=== PATIENT | male | born 1960 | race Asian ===

== ENCOUNTER 2018-11-08 09:58 | Inpatient (IN) | payer OTHER ==
[2018-11-08] MEDS ORDERED: VITAMIN B-1 100 MG, FOLVITE 1 MG, INFUVITE 10 ML, MAGNESIUM SULFATE 2 GM in NACL 0.9% 1... IV ONE (10:59)
[2018-11-08] MEDS ORDERED: NACL 0.9% 1000 ML 1,000 ML IV ONE ×2 (10:59→11:03)
--- NOTE | 2018-11-08 11:09 | Emergency Department Report ---
HPI - General Chief Complaint: Syncope Time Seen by Provider: 11/08/18 10:47 - HPI HPI: Room 22 The patient is a 57-year-old male presenting with chief complaint of abdominal pain and syncope. Family states patient has a history of heavy alcohol consump tion to 2 approximately 1 pint of whiskey daily. The patient states he last consumed approximately 1 week ago the family states they last saw drinking approximately 2 days ago. For the past 2 days the patient has had midepigastric abdominal pain. Patient denies nausea vomiting or diarrhea. The patient uses a follow-up_12/10. The patient was going to his physician's office this morning for his abdominal pain and during triage patient was standing and then he fell. Family states they caught him and the patient went unresponsive for approximately 2-3 minutes. Family states the patient had tremors but did not have a seizure like activity. Family denies history of fever but last night the patient states he was diaphoretic Location: [See above] Duration: [See above] Quality: [See above] Severity: 12/10 Modifying factors: [see above] Context: [see above] Mode of transportation: [not driving] ED Past Medical Hx - Past Medical History Previous Medical History?: Yes Hx Hypertension: Yes Hx Diabetes: Yes - Surgical History Past Surgical History?: No - Family History Family history: no significant - Social History Smoking Status: Never Smoker Substance Use Type: Alcohol (approximately 1 pint of liquor daily) - Medications Home Medications: Home Medications Medication Instructions Recorded Confirmed Last Taken Type Carvedilol 25 mg PO BID 11/08/18 11/08/18 Unknown History Cetirizine HCl 10 mg PO DAILY 11/08/18 11/08/18 Unknown History Fenofibrate 160 mg PO HS 11/08/18 11/08/18 Unknown History Lovastatin 40 mg PO DAILY 11/08/18 11/08/18 Unknown History Olmesartan/Hctz 40/12.5MG 40 mg PO DAILY 11/08/18 11/08/18 Unknown History chlorproMAZINE 25 mg PO TID 11/08/18 11/08/18 Unknown History metFORMIN 1,000 mg PO BID 11/08/18 11/08/18 Unknown History traZODone 150 mg PO DAILY 11/08/18 11/08/18 Unknown History ED Review of Systems ROS: Stated complaint: SYNCOPE Other details as noted in HPI Constitutional: diaphoresis. denies: fever Eyes: denies: eye pain ENT: denies: throat pain Respiratory: no symptoms reported Cardiovascular: denies: chest pain Endocrine: no symptoms reported Gastrointestinal: abdominal pain. denies: nausea, vomiting, diarrhea Genitourinary: other (difficulty urinating) Musculoskeletal: denies: back pain Neurological: denies: headache Physical Exam - Physical Exam Vital Signs: Vital Signs 11/08/18 10:17 Temperature 98 F Pulse Rate 118 H Respiratory 16 Rate Blood Pressure 119/100 O2 Sat by Pulse 95 Oximetry Physical Exam: GENERAL: The patient is well-developed well-nourished male lying on stretcher not appearing to be in acute distress. [] HEENT: Normocephalic. Atraumatic. Extraocular motions are intact. Patient has moist mucous membranes. NECK: Supple. Trachea midline CHEST/LUNGS: Clear to auscultation. There is no respiratory distress noted. HEART/CARDIOVASCULAR: Regular. There is tachycardia. There is no gallop rub or murmur. ABDOMEN: Abdomen is soft, with diffuse tenderness to palpation, but greatest in the right lower quadrant. Patient has normal bowel sounds. There is no abdominal distention. SKIN: There is no rash. There is no edema. There is no diaphoresis. NEURO: The patient is awake, alert, and oriented. The patient is cooperative. The patient has no focal neurologic deficits. The patient has normal speech. Patient has slight tremulousness MUSCULOSKELETAL: There is no evidence of acute injury. ED Course Vital Signs 11/08/18 10:17 Temperature 98 F Pulse Rate 118 H Respiratory 16 Rate Blood Pressure 119/100 O2 Sat by Pulse 95 Oximetry - Reevaluation(s) Reevaluation #1: 11/08/18 12:12 Nurse (Blake) informed of patient's potassium and need for urgent medication - Consultations Consultation #1: 11/08/18 12:12 Nephrology paged 11/08/18 12:[address] Garland. Recommends administering 2 more sodium bicarbonate in place and patient will bicarbonate drip consisting of 1 L D5 mixed with 3 A of sodium bicarbonate at 125 mL/hr. recommends contacting vascular for Vas-Cath Consultation #2: 11/08/18 12:40 Vascular surgery paged 11/08/18 12:[address] Demarco ED Medical Decision Making - Lab Data Result diagrams: 11/08/18 11:05 11/08/18 11:05 Laboratory Tests 11/08/18 11/08/18 11/08/18 11:05 11:05 11:05 WBC 18.4 H RBC 3.90 Hgb 13.6 Hct 39.9 MCV 102 H MCH 35 H MCHC 34 RDW 16.7 H Plt Count 135 L PT 16.4 H INR 1.24 H APTT 33.9 Sodium 127 L Potassium 7.4 H* Chloride 83.9 L Carbon Dioxide 18 L Anion Gap 32 BUN 25 H Creatinine 3.8 H Estimated GFR 17 BUN/Creatinine Ratio 7 Glucose 244 H POC Glucose Calcium 8.2 L Total Bilirubin 1.30 H AST 128 H ALT 32 Alkaline Phosphatase 38 Ammonia Total Creatine Kinase 159 CK-MB (CK-2) 1.1 CK-MB (CK-2) Rel Index 0.6 Troponin T < 0.010 Total Protein 7.9 Albumin 3.8 L Albumin/Globulin Ratio 0.9 Lipase 3006 H TSH Free T4 Plasma/Serum Alcohol Blood Type Antibody Screen 11/08/18 11/08/18 11/08/18 11:05 11:05 11:05 WBC RBC Hgb Hct MCV MCH MCHC RDW Plt Count PT INR APTT Sodium Potassium Chloride Carbon Dioxide Anion Gap BUN Creatinine Estimated GFR BUN/Creatinine Ratio Glucose POC Glucose Calcium Total Bilirubin AST ALT Alkaline Phosphatase Ammonia 35.0 Total Creatine Kinase CK-MB (CK-2) CK-MB (CK-2) Rel Index Troponin T Total Protein Albumin Albumin/Globulin Ratio Lipase TSH 9.780 H Free T4 1.21 Plasma/Serum Alcohol < 0.01 Blood Type Antibody Screen 11/08/18 11/08/18 11:13 12:20 WBC RBC Hgb Hct MCV MCH MCHC RDW Plt Count PT INR APTT Sodium Potassium Chloride Carbon Dioxide Anion Gap BUN Creatinine Estimated GFR BUN/Creatinine Ratio Glucose POC Glucose 183 H Calcium Total Bilirubin AST ALT Alkaline Phosphatase Ammonia Total Creatine Kinase CK-MB (CK-2) CK-MB (CK-2) Rel Index Troponin T Total Protein Albumin Albumin/Globulin Ratio Lipase TSH Free T4 Plasma/Serum Alcohol Blood Type O POSITIVE Antibody Screen Negative - EKG Data -: EKG Interpreted by Nc EKG shows normal: sinus rhythm Rate: tachycardia (120 bpm) - EKG Data When compared to previous EKG there are: previous EKG unavailable Interpretation: other (no ischemic changes seen) - Radiology Data Radiology results: pending (CT abdomen and pelvis), report reviewed (CT head), image reviewed (CT head) Findings [facility] [address] [place] [address] Cat Scan Report Signed Patient: LUCIO SHAH MR#: [id number] : 1960 Acct:[id number] Age/Sex: 57 / M ADM Date: 11/08/18 Loc: ED Attending Dr: Ordering Physician: MI GREGORIO MD Date of Service: 11/08/18 Procedure(s): CT head/brain wo con Accession Number(s): [id number] cc: MI GREGORIO MD EXAM: CT HEAD/BRAIN WO CON HISTORY: syncope TECHNIQUE: Spiral axial CT images are obtained through the brain without the administration of intravenous contrast. COMPARISON: None available. FINDINGS: There are parenchymal lucencies within the white matter tracks of the centrum semiovale, consistent with chronic sequela of atherosclerotic microvascular ischemic disease. Bilateral basal ganglia calcifications consistent with atherosclerotic microangiopathy. Atherosclerosis of the intracranial ICAs is seen. There is diffuse cerebral cortical atrophy. The centrum semiovale, basal ganglia, cerebellum, and brainstem are otherwise grossly unremarkable for a noncontrast CT scan. There is no acute intracranial hemorrhage, gross acute infarction, mass lesion, midline shift, or hydrocephalus seen. No extra-axial mass or abnormal fluid collection noted. The calvarium is intact. There is chronic sphenoid sinusitis marked by lobular mucoperiosteal thickening, right greater than left. There is partial opacification of the left inferior mastoid air cells in keeping with chronic mastoiditis. The partially imaged paranasal sinuses, middle ear cavities and mastoid air cells are otherwise clear. IMPRESSION: 1. Chronic microvascular ischemic disease throughout the centrum semiovale, but no discernible acute infarction seen. Consider followup MRI with diffusion-weighted imaging to rule out occult acute infarction if clinically warranted. 2. Bilateral basal ganglia calcifications consistent with atherosclerotic microangiopathy. Atherosclerosis of the intracranial ICAs is seen. 3. No skull fracture, intracranial hemorrhage, mass lesion, midline shift, or hydrocephalus seen. 4. Chronic sphenoid sinusitis marked by lobular mucoperiosteal thickening, right greater than left. 5. Partial opacification of the left inferior mastoid air cells in keeping with chronic mastoiditis. This document is electronically signed by Isaac Guido MD., November 08 2018 12:22:11 PM ET Transcribed By: ASM Dictated By: ISAAC GUIDO Electronically Authenticated By: ISAAC GUIDO Signed Date/Time: 11/08/18 1224 DD/ 1200 TD/TT: 11/08/18 1201 - Differential Diagnosis alcohol withdrawal, pancreatitis, symptomatic anemia Critical Care Time: Yes Critical care time in (mins) excluding proc time.: 30 Critical care attestation.: If time is entered above; I have spent that time in minutes in the direct care of this critically ill patient, excluding procedure time. ED Disposition Clinical Impression: Syncope, Acute renal failure, Acute pancreatitis, Hypotension, Hyperkalemia Disposition: OP ADMIT IP TO THIS HOSP Is pt being admited?: Yes Does the pt Need Aspirin: No Condition: Serious Instructions: Syncope (ED) Referrals: NAM COLBERT MD [Primary Care Provider] - 3-5 Days Time of Disposition: 12:53 (hospitalist notified (Dr Todd))
[2018-11-08 11:30] LABS: Hematocrit 39.9 % (35.5-45.6); Hemoglobin 13.6 gm/dl (11.8-15.2); Mean Corpuscular HGB Conc 34 % (32-34); Mean Corpuscular Volume 102 fl (84-94); Platelet Count 135 K/mm3 (140-440); Red Cell Distribution Width 16.7 % (13.2-15.2)
[2018-11-08 11:41] LABS: INR 1.24 (0.87-1.13)
[2018-11-08 11:42] LABS: Partial Thromboplastin Time 33.9 Sec. (24.2-36.6)
[2018-11-08 11:55] LABS: Creatine Kinase MB 1.1 ng/mL (0.0-4.0)
[2018-11-08 11:56] LABS: Alanine Aminotransferase 32 units/L (7-56); Albumin 3.8 g/dL (3.9-5); BUN/Creatinine Ratio 7; Blood Urea Nitrogen 25 mg/dL (9-20); Calcium 8.2 mg/dL (8.4-10.2); Hemolysis Index 8
[2018-11-08] MEDS ORDERED: MAGNESIUM SULFATE IV ONE (12:00)
[2018-11-08] MEDS ORDERED: NACL IV ONE (12:00)
[2018-11-08] MEDS ORDERED: FOLVITE IV ONE (12:00)
[2018-11-08] MEDS ORDERED: INFUVITE IV ONE (12:00)
[2018-11-08 12:02] LABS: Free T4 (Free Thyroxine) 1.21 ng/dL (0.76-1.46)
[2018-11-08] MEDS ORDERED: D50W (25GM) Syringe IV ONE (12:08)
[2018-11-08] MEDS ORDERED: CALCIUM GLUCONATE 1,000 MG in NACL 0.9% 100 ML IV ONE (12:08)
[2018-11-08] MEDS ORDERED: PROVENTIL IH ONE (12:08)
[2018-11-08] MEDS ORDERED: HumuLIN R IV ONE (12:08)
--- NOTE | 2018-11-08 12:24 | Cat Scan Report ---
EXAM: CT HEAD/BRAIN WO CON HISTORY: syncope TECHNIQUE: Spiral axial CT images are obtained through the brain without the administration of intra venous contrast. COMPARISON: None available. FINDINGS: There are parenchymal lucencies within the white matter tracks of the centrum semiovale, consistent w ith chronic sequela of atherosclerotic microvascular ischemic disease. Bilateral basal ganglia calci fications consistent with atherosclerotic microangiopathy. Atherosclerosis of the intracranial ICAs i s seen. There is diffuse cerebral cortical atrophy. The centrum semiovale, basal ganglia, cerebellum, and bra instem are otherwise grossly unremarkable for a noncontrast CT scan. There is no acute intracranial hemorrhage, gross acute infarction, mass lesion, midline shift, or hydrocephalus seen. No extra-axia l mass or abnormal fluid collection noted. The calvarium is intact. There is chronic sphenoid sinusitis marked by lobular mucoperiosteal thicken ing, right greater than left. There is partial opacification of the left inferior mastoid air cells i n keeping with chronic mastoiditis. The partially imaged paranasal sinuses, middle ear cavities and m astoid air cells are otherwise clear. IMPRESSION: 1. Chronic microvascular ischemic disease throughout the centrum semiovale, but no discernible acute infarction seen. Consider followup MRI with diffusion-weighted imaging to rule out occult acute infa rction if clinically warranted. 2. Bilateral basal ganglia calcifications consistent with atherosclerotic microangiopathy. Atheroscl erosis of the intracranial ICAs is seen. 3. No skull fracture, intracranial hemorrhage, mass lesion, midline shift, or hydrocephalus seen. 4. Chronic sphenoid sinusitis marked by lobular mucoperiosteal thickening, right greater than left. 5. Partial opacification of the left inferior mastoid air cells in keeping with chronic mastoiditis. This document is electronically signed by Erwin Stroud MD., November 08 2018 12:22:11 PM ET
[2018-11-08] MEDS ORDERED: SODIUM BICARBONATE 150 MEQ in D5W 1,000 ML IV ONE (12:47)
[2018-11-08 12:50] LABS: Band Neutrophils # (Manual) 0.9 K/mm3; Basophils % (Manual) 0 % (0.0-1.8); Eosinophils % (Manual) 0 % (0.0-4.3); Total Cells Counted 100
[2018-11-08 12:55] LABS: Anisocytosis 1+; Macrocytosis 1+; Platelet Estimate Consistent w Auto
--- NOTE | 2018-11-08 12:59 | Consultation ---
History of Present Illness - History of Present Illness Thank you for the consultation Source of information: History of presenting illness Patient is a 57-year-old male who is currently being followed by Dr. Thomas He was admitted here with increasing abdominal pain as well as a syncopal spell: Patient has been drinking for many many years according to his son for at least 15 or more recently for the last 3-4 days he was unable to drink and has been working on quitting drinking. He has never been told to have any history of chronic kidney disease and renal failure. Upon admission he was also noted to be somewhat tremulous and jittery and was complaining of midepigastric abdominal pain patient's appetite has been very poor for last 4-5 days he does drank approximately a pint of whiskey every day He does not take any form of monitor vital drug no history of any hepatitis B C HIV lupus or paraproteinemias no history of epistaxis or skin rash As noted to have severe hyperkalemia with renal failure for which I came and saw the patient right away Past medical history significant for: Hypertension Chronic alcohol abuse Current allergies: Reviewed Home medication/present medication: Reviewed Social history: Reviewed from the current chart Family history: Reviewed from the current chart Review of system is positive for; Weakness generalized, fatigue, syncopal spell, poor appetite, poor by mouth in take for last several days All other review of systems were negative Physical examination Vitals: Reviewed from this admission Gen.: No acute distress/ patient does however appear to be jittery and tremulous HEENT: Normocephalic/atraumatic skull oral mucosa very dry minimal pallor no icterus or uremic order Neck: Supple without any thyromegaly nodular mass or JVD Chest: Clear to auscultation anteriorly few faint basilar crackles otherwise unremarkable Heart: Regular rate and rhythm S1 and S2 heard no S3-S4 no pericardial rub Abdomen: Soft nontender no guarding rigidity rebound organomegaly no suprapubic masses, no CVA tenderness no renal bruit Back: No CVA tenderness Derm: No petechial rashes dry skin Extremity: Pulses palpable no peripheral cyanosis, 1+ edema dry skin Neurological: Alert awake follows commands Psychiatric: No agitation and aggression Labs and x-rays: Were reviewed from this admission Assessment and plan; Renal failure / hyperkalemia , needs stat dialysis , will order stat , discussed with ER MD about getting vascath palcement Has very poor appetite , past few days Cr EToH abuse 20 years or more Hyperkalemia , medical treatment advised Liver disease, ETOH abuse Abdominal pain needs GI evaluation Hypotension , volume resucitation ICU admission, vasopressors Care plan formulated with ER MD Needs stat vas cath, HD ordered D/W pratik to do potassium 2 hour into treratment Also explained to the patients son at length Needs cardiology evaluation Had a detailed discussion with patient as well as his son at the bedside about the plan of care from renal standpoint. All questions were answered labs and pertinent imaging findings were explained to the patient and simple Kiswahili. Patient needs emergent dialysis which will be arranged appreciated vascular surgery for placing the dialysis catheter Advised patient to make an appointment for follow-up within a week of the discharge, for proper renal care We'll continue to follow and make recommendation from renal standpoint Thank you for the consultation. Medications and Allergies Allergies Allergy/AdvReac Type Severity Reaction Status Date / Time No Known Allergies Allergy Verified 11/08/18 10:14 Home Medications Medication Instructions Recorded Confirmed Last Taken Type Carvedilol 25 mg PO BID 11/08/18 11/08/18 Unknown History Cetirizine HCl 10 mg PO DAILY 11/08/18 11/08/18 Unknown History Fenofibrate 160 mg PO HS 11/08/18 11/08/18 Unknown History Lovastatin 40 mg PO DAILY 11/08/18 11/08/18 Unknown History Olmesartan/Hctz 40/12.5MG 40 mg PO DAILY 11/08/18 11/08/18 Unknown History chlorproMAZINE 25 mg PO TID 11/08/18 11/08/18 Unknown History metFORMIN 1,000 mg PO BID 11/08/18 11/08/18 Unknown History traZODone 150 mg PO DAILY 11/08/18 11/08/18 Unknown History Active Meds: Active Medications Folic Acid 1 mg/ Magnesium Sulfate 2 gm/ Multivitamins/Minerals 10 ml/ Sodium Chloride 1,014.2 mls @ 250 mls/hr IV ONCE.ED ONE Stop: 11/08/18 16:03 Last Admin: 11/08/18 11:45 Dose: 250 mls/hr Documented by: Sodium Bicarbonate 150 meq/ (Dextrose) 1,150 mls @ 125 mls/hr IV DIRECT ONE Stop: 03/09/19 21:58 Sodium Bicarbonate (Sodium Bicarbonate) 50 meq IV ONCE ONE Stop: 11/08/18 13:01 Exam - Vital Signs Vital signs: Vital Signs Temp Pulse Resp BP Pulse Ox 98 F 118 H 16 119/100 95 11/08/18 10:17 11/08/18 10:17 11/08/18 10:17 11/08/18 10:17 11/08/18 10:17 Results - Lab Results 11/10/18 05:37 11/10/18 05:37 Most recent lab results Calcium 8.2 mg/dL (8.4-10.2) L 11/08/18 11:05
[2018-11-08] MEDS ORDERED: SODIUM BICARBONATE IV ONE ×2 (13:00→14:00)
--- NOTE | 2018-11-08 13:00 | History and Physical Report ---
History of Present Illness Chief complaint: My stomach hurts, and I got dizzy and passed out History of present illness: 57 YO Male with ETOH Dependence, HTN, DM presents to ED for evaluation. Pt speaks limited Turkish, but family member serves as conference translator. As per patient, he consumes 1 pint of Mukesh Walker daily with last ingestion almost 2 days ago. Pt also reports abdominal discomfort, generalized weakness, decreased oral intake over the past 1 week. Pt was seen by PCP today for abdominal pain and upon standing the patient the patient felt week, and lost his balance and almost fell. The patient family reports a change in level of consciousness for 2-3 minutes. EMS notified, and upon arrival the patient was found to be in distress without neurologic deficit. Pt transported to [facility]. Pt seen and evaluated in ED and found to have ARF/ESRD and in need of Emergent dialysis. Pt also found to have ETOH Pancreatitis. Pt treated IAW ETOH withdrawl protocol. Vascular surgery consulted in ED. Pt admitted to [facility]. No reports of fever, chills, CP, Palpitations, NVD, Trauma, Ingestion of toxic substances, Herbal supplements, known nephrotoxic agents, skin rash, vertigo, or recent ill contacts. Past History Past Medical History: diabetes, hypertension Past Surgical History: cholecystectomy Social history: , alcohol abuse Family history: no significant family history (reviewed) Medications and Allergies Allergies Allergy/AdvReac Type Severity Reaction Status Date / Time No Known Allergies Allergy Verified 11/08/18 10:14 Home Medications Medication Instructions Recorded Confirmed Last Taken Type Carvedilol 25 mg PO BID 11/08/18 11/08/18 Unknown History Cetirizine HCl 10 mg PO DAILY 11/08/18 11/08/18 Unknown History Fenofibrate 160 mg PO HS 11/08/18 11/08/18 Unknown History Lovastatin 40 mg PO DAILY 11/08/18 11/08/18 Unknown History Olmesartan/Hctz 40/12.5MG 40 mg PO DAILY 11/08/18 11/08/18 Unknown History chlorproMAZINE 25 mg PO TID 11/08/18 11/08/18 Unknown History metFORMIN 1,000 mg PO BID 11/08/18 11/08/18 Unknown History traZODone 150 mg PO DAILY 11/08/18 11/08/18 Unknown History Active Meds: Active Medications Folic Acid 1 mg/ Magnesium Sulfate 2 gm/ Multivitamins/Minerals 10 ml/ Sodium Chloride 1,014.2 mls @ 250 mls/hr IV ONCE.ED ONE Stop: 11/08/18 16:03 Last Admin: 11/08/18 11:45 Dose: 250 mls/hr Documented by: Sodium Bicarbonate 150 meq/ (Dextrose) 1,150 mls @ 125 mls/hr IV DIRECT ONE Stop: 11/08/18 21:58 Sodium Bicarbonate (Sodium Bicarbonate) 50 meq IV ONCE ONE Stop: 11/08/18 13:01 Review of Systems Constitutional: weakness, no weight loss, no weight gain, no fever, no chills Ears, nose, mouth and throat: no ear pain, no ear discharge, no tinnitis, no decreased hearing, no nose pain, no nasal congestion Gastrointestinal: abdominal pain, no nausea, no vomiting, no diarrhea Genitourinary Male: no hematuria, no flank pain, no urinary frequency, no urinary hesitancy Rectal: no pain, no incontinence, no bleeding Musculoskeletal: no neck stiffness, no neck pain, no shooting arm pain, no low back pain Integumentary: no rash, no pruritis, no redness, no sores, no wounds Neurological: weakness, change in mentation, no numbness, no tingling, no seizures, no syncope, no tremors, no aphasia, no change in speech Psychiatric: no anxiety, no memory loss, no change in sleep habits, no sleep disturbances, no insomnia, no hypersomnia, no change in appetite Endocrine: no cold intolerance, no heat intolerance, no polyphagia, no excessive thirst, no polydipsia, no polyuria, no nocturia Hematologic/Lymphatic: no easy bruising, no easy bleeding, no lymphadenopathy Allergic/Immunologic: no urticaria, no allergic rhinitis, no wheezing, no persistent infections, no anaphylaxis Exam - Constitutional Vitals: Temp Pulse Resp BP Pulse Ox 98 F 115 H 16 95/58 95 11/08/18 10:17 11/08/18 12:11 11/08/18 12:11 11/08/18 12:11 11/08/18 12:11 General appearance: Present: mild distress, malodorous - EENT Eyes: Present: PERRL ENT: hearing intact, clear oral mucosa - Neck Neck: Present: supple, normal ROM - Respiratory Respiratory effort: normal Respiratory: bilateral: CTA - Cardiovascular Rhythm: other (tachycardia) Heart Sounds: Present: S1 & S2. Absent: rub, click - Extremities Extremities: pulses symmetrical, No edema Peripheral Pulses: within normal limits - Abdominal General gastrointestinal: Present: soft, tender, non-distended, normal bowel sounds. Absent: hepatomegaly, splenomegaly, mass Male genitourinary: Present: normal - Integumentary Integumentary: Present: clear, warm, dry, clammy, decreased turgor - Musculoskeletal Musculoskeletal: generalized weakness - Psychiatric Psychiatric: no appropriate mood/affect, no intact judgment & insight, no memory intact - Neurologic Neurologic: CNII-XII intact, moves all extremities Results - Labs CBC & Chem 7: 11/08/18 11:05 11/08/18 11:05 Labs: Abnormal lab results 11/08/18 11/08/18 11/08/18 Range/Units 11:05 11:05 11:05 WBC 18.4 H (4.5-11.0) K/mm3 MCV 102 H (84-94) fl MCH 35 H (28-32) pg RDW 16.7 H (13.2-15.2) % Plt Count 135 L (140-440) K/mm3 Seg Neuts % (Manual) 84.0 H (40.0-70.0) % Lymphocytes % (Manual) 6.0 L (13.4-35.0) % Seg Neutrophils # Man 15.5 H (1.8-7.7) K/mm3 Lymphocytes # (Manual) 1.1 L (1.2-5.4) K/mm3 Monocytes # (Manual) 0.9 H (0.0-0.8) K/mm3 PT 16.4 H (12.2-14.9) Sec. INR 1.24 H (0.87-1.13) Sodium 127 L (137-145) mmol/L Potassium 7.4 H* (3.6-5.0) mmol/L Chloride 83.9 L (98-107) mmol/L Carbon Dioxide 18 L (22-30) mmol/L BUN 25 H (9-20) mg/dL Creatinine 3.8 H (0.8-1.5) mg/dL Glucose 244 H (75-100) mg/dL POC Glucose (70-105) Calcium 8.2 L (8.4-10.2) mg/dL Total Bilirubin 1.30 H (0.1-1.2) mg/dL AST 128 H (5-40) units/L Albumin 3.8 L (3.9-5) g/dL Lipase 3006 H (13-60) units/L TSH (0.270-4.200) mlU/mL 11/08/18 11/08/18 Range/Units 11:05 12:20 WBC (4.5-11.0) K/mm3 MCV (84-94) fl MCH (28-32) pg RDW (13.2-15.2) % Plt Count (140-440) K/mm3 Seg Neuts % (Manual) (40.0-70.0) % Lymphocytes % (Manual) (13.4-35.0) % Seg Neutrophils # Man (1.8-7.7) K/mm3 Lymphocytes # (Manual) (1.2-5.4) K/mm3 Monocytes # (Manual) (0.0-0.8) K/mm3 PT (12.2-14.9) Sec. INR (0.87-1.13) Sodium (137-145) mmol/L Potassium (3.6-5.0) mmol/L Chloride (98-107) mmol/L Carbon Dioxide (22-30) mmol/L BUN (9-20) mg/dL Creatinine (0.8-1.5) mg/dL Glucose (75-100) mg/dL POC Glucose 183 H (70-105) Calcium (8.4-10.2) mg/dL Total Bilirubin (0.1-1.2) mg/dL AST (5-40) units/L Albumin (3.9-5) g/dL Lipase (13-60) units/L TSH 9.780 H (0.270-4.200) mlU/mL Assessment and Plan - Patient Problems (1) Acute pancreatitis Current Visit: Yes Status: Acute Qualifiers: Pancreatitis type: alcohol induced Plan to address problem: Admit to IMCU, IVF resuscitation therapy as tolerated, monitor uop q shift, strict I/O, monitor fluid balance, bowel rest, CT Abdomen/Pelvis, lipase level (2) Acute renal failure Current Visit: Yes Status: Acute Qualifiers: Acute renal failure type: with acute tubular necrosis Qualified Code(s): N17.0 - Acute kidney failure with tubular necrosis Plan to address problem: IVF resuscitation therapy as tolerated, Nephrology service consulted for urgent dialysis, Vascular surgery consulted for permacath placement. Dialysis as per renal team. (3) SIRS due to infectious process with acute organ dysfunction Current Visit: Yes Status: Acute Plan to address problem: Treat ARF, IVF resuscitation, Empiric renal dose antibiotic therapy x 1 dose in ED, CBC, CMP, treat pancreatitis, urinalysis, chest x ray, (4) Acidosis Current Visit: Yes Status: Acute Plan to address problem: IVF resuscitation therapy as tolerated, IV bicarbonate therapy (5) ETOH abuse Current Visit: Yes Status: Acute Plan to address problem: CIWA protocol, Banana bag, (6) DVT prophylaxis Current Visit: Yes Status: Acute Plan to address problem: SCD to BLE while in bed.
[2018-11-08] MEDS ORDERED: NACL 0.9% 100 ML IV PRN (13:08)
[2018-11-08] MEDS ORDERED: SODIUM CHLORIDE FLUSH SYRINGE 10 ML IV PRN (13:33)
[2018-11-08 13:36] LABS: Bilirubin,Urine NEG (Negative); Blood,Urine MOD (Negative); Color,Urine Yellow (Yellow); Mucus,Urine FEW /HPF; Urobilinogen,Urine < 2.0 mg/dL (<2.0)
[2018-11-08 13:42] LABS: Creatinine,Urine 84.6 mg/dL (0.1-20.0)
[2018-11-08 13:44] LABS: Amphetamine Screen,Urine PRESUMPTIVE NEGATIVE; Benzodiazepines Screen,Urine PRESUMPTIVE NEGATIVE; Cannabinoid Screen,Urine PRESUMPTIVE NEGATIVE; Cocaine Screen,Urine PRESUMPTIVE NEGATIVE; Methadone Screen,Urine PRESUMPTIVE NEGATIVE; Opiate Screen,Urine PRESUMPTIVE NEGATIVE
[2018-11-08] MEDS ORDERED: NACL 0.45% 1000 ML 1,000 ML IV SCH (14:00)
[2018-11-08 14:09] LABS: Hepatitis B Surface Antigen Non-Reactive (Negative); Hepatitis C Virus Antibody Non-Reactive (NonReactive)
[2018-11-08] MEDS ORDERED: LEVAQUIN 250MG/50ML 250 MG/50 ML BAG IV ONE (14:13)
--- NOTE | 2018-11-08 14:29 | Cat Scan Report ---
PROCEDURE: CT ABDOMEN PELVIS WO CON TECHNIQUE: Computerized axial tomography of the abdomen and pelvis was performed without intravenous contrast. This study is performed without intravascular contrast material and its sensitivity for ab dominal and pelvic pathology, including neoplasms, inflammation, abscess, free fluid, thrombosis, art erial dissection and infarction, is reduced compared with a contrast enhanced study. CT DOSE LENGTH PRODUCT: 1237.48 mGy-cm. HISTORY: epigastric pain, diffuse tenderness COMPARISONS: None currently available. FINDINGS: Abdomen: Lung bases and images of the heart are grossly unremarkable. Liver: Decreased heterogeneous attenuation may represent hepatocellular disease, fatty infiltration, or cirrhosis. No suspicious lesion. Pancreas: Prominent with stranding and peripancreatic fluid. Trace fluid and stranding extending into both colic gutters and down to the pelvis. No areas of decreased attenuation within or adjacent to t he pancreas. Wall thickening and stranding of the nearby duodenum. Biliary: Distended gallbladder with layering density which may represent stones or sludge. No obvious wall thickening. Common bile duct does not appear prominent. Stomach: Mild stranding of fluid near the greater curvature of the proximal stomach without gastric w all thickening. Spleen, adrenals, and kidneys are unremarkable. No hydronephrosis. No nephroureteral stones. No aneurysm. Mild atherosclerotic disease. IVC is unremarkable. Retroaortic left renal vein. There is no periaortic or retroperitoneal adenopathy or mass. Sections of the Left colon are collapsed which limits evaluation for wall thickening. A mild colitis is not entirely excluded. No stranding. [id number] stool in the remainder of the colon without significant wall thickening. Terminal ileum is unremarkable. The appendix is not identified. Mild stranding and fluid in the pericecal region is nonspecific. Mild fluid distended small bowel loops with a few air-fluid levels. No obstructive pattern. Small amount of free fluid around the pancreas and both colic gutters extending down to the pelvis. N o free air. Mesenteric stranding noted. Pelvis: Enlarged heterogeneous prostate. Bladder: Contracted and not well evaluated There is no pelvic mass or adenopathy. Inguinal regions are unremarkable. Bones: No suspicious osseous lesions on this limited examination of the skeleton. Metastatic disease better evaluated with bone scan. Degenerative changes are in the spine and hips. IMPRESSION: * Suspect acute pancreatitis. No peripancreatic fluid collection. Stranding and fluid which may repr esent inflammation extends around the stomach, spleen, into both colic gutters and slightly down into the pelvis. Collateral inflammation of the duodenum noted. Differential diagnosis would include prim allen duodenitis with collateral pancreatitis. * Suspect mild ileus of the small bowel loops without obstruction. This document is electronically signed by Nato Townsend MD., November 08 2018 02:28:12 PM ET
--- NOTE | 2018-11-08 14:54 | Ultrasound Report ---
PROCEDURE: US RENAL BILAT TECHNIQUE: Bilateral renal ultrasound. HISTORY: renal failure COMPARISONS: None currently available. FINDINGS: RIGHT kidney: 9.7 x 5.5 x 6.2 cm. cm. Cortex measures 1.4 cm. Normal echotexture. No focal renal mass , calculus, or hydronephrosis. LEFT kidney: 10.8 x 5.1 x 5.3 cm. cm. Cortex measures 1.5 cm. Normal echotexture. No focal renal mass , calculus, or hydronephrosis. IMPRESSION: * Unremarkable. This document is electronically signed by Nato Townsend MD., November 08 2018 02:52:03 PM ET
--- NOTE | 2018-11-08 15:38 | Consultation ---
History of Present Illness - Reason for Consult Consult date: 11/08/18 Vascath Placement Requesting physician: MI GREGORIO - History of Present Illness The patient is a 57 year old male who was sent to the Emergency Department by his PCP after he presented with confusion and falling down. He has a history of diabetes and drinking at least a pint a day of Silvino Walker whiskey. Upon arrival here he had labs drawn which revealed hyperkalemia with a potassium of 7 .4 as well as a creatinine greater than 3. Per the family he had no previous history of renal failure. Additionally he had a TSH greater than 9 as well as an elevated lipase. I was consulted for placement of a Vas-Cath for urgent dialysis. At this time the patient has no complaints of pain. It is difficult to get any further history from the patient due to his confusion. Past History Past Medical History: CAD, diabetes, hypertension, hyperlipidemia Past Surgical History: cholecystectomy Social history: , alcohol abuse Family history: no significant family history (reviewed) Medications and Allergies Allergies Allergy/AdvReac Type Severity Reaction Status Date / Time No Known Allergies Allergy Verified 11/08/18 10:14 Home Medications Medication Instructions Recorded Confirmed Last Taken Type Carvedilol 25 mg PO BID 11/08/18 11/08/18 Unknown History Cetirizine HCl 10 mg PO DAILY 11/08/18 11/08/18 Unknown History Fenofibrate 160 mg PO HS 11/08/18 11/08/18 Unknown History Lovastatin 40 mg PO DAILY 11/08/18 11/08/18 Unknown History Olmesartan/Hctz 40/12.5MG 40 mg PO DAILY 11/08/18 11/08/18 Unknown History chlorproMAZINE 25 mg PO TID 11/08/18 11/08/18 Unknown History metFORMIN 1,000 mg PO BID 11/08/18 11/08/18 Unknown History traZODone 150 mg PO DAILY 11/08/18 11/08/18 Unknown History Active Meds: Active Medications Famotidine (Pepcid) 10 mg PO BID CHRISSY Folic Acid 1 mg/ Magnesium Sulfate 2 gm/ Multivitamins/Minerals 10 ml/ Sodium Chloride 1,014.2 mls @ 250 mls/hr IV ONCE.ED ONE Stop: 11/08/18 16:03 Last Admin: 11/08/18 11:45 Dose: 250 mls/hr Documented by: Sodium Bicarbonate 150 meq/ (Dextrose) 1,150 mls @ 125 mls/hr IV DIRECT ONE Stop: 11/08/18 21:58 Last Admin: 11/08/18 13:33 Dose: 125 mls/hr Documented by: Sodium Chloride (Nacl 0.9%) 100 mls @ 999 mls/hr IV YAHAIRA PRN PRN Reason: Hypotension Sodium Chloride (Nacl 0.45% 1000 Ml) 1,000 mls @ 250 mls/hr IV DIRECT CHRISSY Levofloxacin/Dextrose (Levaquin 250mg/50ml) 250 mg in 50 mls @ 50 mls/hr IV ONCE ONE Stop: 11/08/18 15:12 Lorazepam (Ativan) 2 mg IV Q1H PRN PRN Reason: CIWA-Ar 8-15 Sodium Chloride (Sodium Chloride Flush Syringe 10 Ml) 10 ml IV BID CHRISSY Sodium Chloride (Sodium Chloride Flush Syringe 10 Ml) 10 ml IV PRN PRN PRN Reason: LINE FLUSH Review of Systems Constitutional: weakness, lethargy Genitourinary Male: other (decreased urine output) Musculoskeletal: frequent falls Neurological: lack of coordination, balance difficulties Psychiatric: disorientation, confusion Endocrine: cold intolerance Exam - Constitutional Vitals: Temp Pulse Resp BP Pulse Ox 98 F 115 H 16 95/58 95 11/08/18 10:17 11/08/18 12:11 11/08/18 12:11 11/08/18 12:11 11/08/18 12:11 General appearance: Present: no acute distress, other (occasional tremors) - Neck Neck: Present: supple - Respiratory Respiratory effort: normal - Cardiovascular Rhythm: regular - Extremities Extremities: no ischemia, pulses intact, normal temperature - Abdominal General gastrointestinal: Present: soft, non-distended Male genitourinary: Present: deferred - Rectal Rectal Exam: deferred - Integumentary Integumentary: Present: clear Results - Labs CBC & Chem 7: 11/08/18 11:05 11/08/18 11:05 Labs: Abnormal lab results 11/08/18 11/08/18 11/08/18 Range/Units 11:05 11:05 11:05 WBC 18.4 H (4.5-11.0) K/mm3 MCV 102 H (84-94) fl MCH 35 H (28-32) pg RDW 16.7 H (13.2-15.2) % Plt Count 135 L (140-440) K/mm3 Seg Neuts % (Manual) 84.0 H (40.0-70.0) % Lymphocytes % (Manual) 6.0 L (13.4-35.0) % Seg Neutrophils # Man 15.5 H (1.8-7.7) K/mm3 Lymphocytes # (Manual) 1.1 L (1.2-5.4) K/mm3 Monocytes # (Manual) 0.9 H (0.0-0.8) K/mm3 PT 16.4 H (12.2-14.9) Sec. INR 1.24 H (0.87-1.13) Sodium 127 L (137-145) mmol/L Potassium 7.4 H* (3.6-5.0) mmol/L Chloride 83.9 L (98-107) mmol/L Carbon Dioxide 18 L (22-30) mmol/L BUN 25 H (9-20) mg/dL Creatinine 3.8 H (0.8-1.5) mg/dL Glucose 244 H (75-100) mg/dL POC Glucose (70-105) Calcium 8.2 L (8.4-10.2) mg/dL Magnesium (1.7-2.3) mg/dL Total Bilirubin 1.30 H (0.1-1.2) mg/dL AST 128 H (5-40) units/L Albumin 3.8 L (3.9-5) g/dL Lipase 3006 H (13-60) units/L TSH (0.270-4.200) mlU/mL Urine Creatinine (0.1-20.0) mg/dL Urine Total Protein (5-11.8) mg/dL 11/08/18 11/08/18 11/08/18 Range/Units 11:05 12:20 14:50 WBC (4.5-11.0) K/mm3 MCV (84-94) fl MCH (28-32) pg RDW (13.2-15.2) % Plt Count (140-440) K/mm3 Seg Neuts % (Manual) (40.0-70.0) % Lymphocytes % (Manual) (13.4-35.0) % Seg Neutrophils # Man (1.8-7.7) K/mm3 Lymphocytes # (Manual) (1.2-5.4) K/mm3 Monocytes # (Manual) (0.0-0.8) K/mm3 PT (12.2-14.9) Sec. INR (0.87-1.13) Sodium (137-145) mmol/L Potassium (3.6-5.0) mmol/L Chloride (98-107) mmol/L Carbon Dioxide (22-30) mmol/L BUN (9-20) mg/dL Creatinine (0.8-1.5) mg/dL Glucose (75-100) mg/dL POC Glucose 183 H (70-105) Calcium (8.4-10.2) mg/dL Magnesium 1.60 L (1.7-2.3) mg/dL Total Bilirubin (0.1-1.2) mg/dL AST (5-40) units/L Albumin (3.9-5) g/dL Lipase (13-60) units/L TSH 9.780 H (0.270-4.200) mlU/mL Urine Creatinine (0.1-20.0) mg/dL Urine Total Protein (5-11.8) mg/dL 11/08/18 Range/Units Unknown WBC (4.5-11.0) K/mm3 MCV (84-94) fl MCH (28-32) pg RDW (13.2-15.2) % Plt Count (140-440) K/mm3 Seg Neuts % (Manual) (40.0-70.0) % Lymphocytes % (Manual) (13.4-35.0) % Seg Neutrophils # Man (1.8-7.7) K/mm3 Lymphocytes # (Manual) (1.2-5.4) K/mm3 Monocytes # (Manual) (0.0-0.8) K/mm3 PT (12.2-14.9) Sec. INR (0.87-1.13) Sodium (137-145) mmol/L Potassium (3.6-5.0) mmol/L Chloride (98-107) mmol/L Carbon Dioxide (22-30) mmol/L BUN (9-20) mg/dL Creatinine (0.8-1.5) mg/dL Glucose (75-100) mg/dL POC Glucose (70-105) Calcium (8.4-10.2) mg/dL Magnesium (1.7-2.3) mg/dL Total Bilirubin (0.1-1.2) mg/dL AST (5-40) units/L Albumin (3.9-5) g/dL Lipase (13-60) units/L TSH (0.270-4.200) mlU/mL Urine Creatinine 84.6 H (0.1-20.0) mg/dL Urine Total Protein 183 H (5-11.8) mg/dL Assessment and Plan Patient with Acute renal failure resulting in hyperkalemia. Will place femoral vascath at the bedside Plan for conversion to Permacath if no renal improvement as well as vein mapping. Discussed the plan with the patient and his family wo expressed understanding and agree.
--- NOTE | 2018-11-08 15:48 | Operative Report ---
Operative Report Operative Report: Date of Procedure: 11/08/2018 Pre-operative Diagnosis: Acute Renal Failure with Hyperkalemia Post-operative Diagnosis: Same Procedure(s): 1. Ultrasound-Guided Access Right Femoral Vein 2. Placement of 30 cm Trialysis Vascath Surgeon: Lamin Demarco M.D. Regulatory Manager: None Anesthesia: 5 mL of 2% lidocaine EBL: Minimal Counts: Correct Complications: None Condition: Stable Findings: Successful placement of right femoral Vas-Cath with both ports easily aspirated and flushing. Specimen: None Indication: The patient is a 57-year-old male who presented to the emergency department with acute renal failure with a potassium of 7.4. He is in need of urgent dialysis and requires Vas-Cath placement. He and his family were given the risks, benefits, and alternative procedures and consented to the procedure. Description of Procedure: The procedure was performed with the patient bedside. Ultrasound was used to identify confirm patency of the right femoral vein. Once patency was confirmed his right groin was prepped and draped in normal sterile fashion. 2% lidocaine was used to anesthetize the skin and soft tissue overlying the right common femoral vein and then a small stab incision was created with an 11 blade. An access needle was used with ultrasound guidance in the anterior surface of the right common femoral vein and a 0.038 J-wire was advanced into the vein. The tract was serially dilated and the Vas-Cath was advanced into the vein by Seldinger technique. Both ports were then aspirated and flushed and prominent appropriate amount of heparin. The catheter was then secured in place with a 3- 0 Ethilon. The catheter was then dressed with a sterile dressing. The patient tolerated the procedure well and remained in the emergency department in stable condition.
[2018-11-08] MEDS ORDERED: HEPARIN ONE (16:00)
[2018-11-08] MEDS ORDERED: NACL 0.9 (PRIMING MACHINE ONLY DIALYSIS) MC ONE (19:27)
[2018-11-08] MEDS: PEPCID PO SCH (22:38)
[2018-11-08] MEDS: ATIVAN IV PRN (23:04)
[2018-11-09 01:01] LABS: Calcium 8.7 mg/dL (8.4-10.2)
[2018-11-09] MEDS: TYLENOL PO PRN (01:21)
[2018-11-09 05:50] LABS: Hematocrit 31.9 % (35.5-45.6); Hemoglobin 11.2 gm/dl (11.8-15.2); Mean Corpuscular HGB Conc 35 % (32-34); Mean Corpuscular Volume 101 fl (84-94); Platelet Count 103 K/mm3 (140-440); Red Blood Count 3.16 M/mm3 (3.65-5.03); Red Cell Distribution Width 16.1 % (13.2-15.2)
[2018-11-09] MEDS: SODIUM CHLORIDE FLUSH SYRINGE 10 ML IV SCH ×3 (05:58→21:50)
[2018-11-09] MEDS ORDERED: D5/0.45NS 1,000 ML IV SCH (06:00)
[2018-11-09 06:30] LABS: Calcium 8.3 mg/dL (8.4-10.2)
--- NOTE | 2018-11-09 09:45 | Progress Note ---
Subjective Interval history: Patient was seen today for follow-up on multiple renal related issues Events of this hospitalization noted has had hemodialysis yesterday Potassium is much better today Patient denies having any chest pain pressure or shortness of breath Vitals labs intake output medications were reviewed Social history: Reviewed Allergies: Reviewed Family history: Reviewed Physical examination HEENT: Oral mucosa moist no pallor or icterus Neck: Supple no JVD Chest: Clear to auscultation anteriorly CVS: Regular rate and rhythm S1 and S2 heard Abdomen: Soft nontender no suprapubic masses no organomegaly appreciable Extremity: Dry skin less than 1+ peripheral edema Musculoskeletal: No joint effusion noted in knees and ankle Neurological: Alert awake Dermatology: No petechial rashes Psychiatry: No evidence of any agitation and aggression noted Assessment and plan Acute kidney injury likely, patient's renal ultrasonogram unremarkable: Hyperkalemia appears to be better Continue to follow up labs monitor intake and output Last alcohol intake was approximately 3-4 days ago patient needs to be maintained on DT protocol Tachycardia hypertension: Likely due to withdrawal Monitor sodium level,, change IV fluid to D5 water Follow-up on osmolality as well as uric acid level Renal prognosis guarded at this time but there is no emergent indication for renal replacement therapy today Care plan discussed with patient as well as his family during this admission at length History of chronic alcoholism for nearly 20 years, abnormal liver enzyme, Patient was adequately counseled and educated regarding multiple renal related issues Pertinent lab findings were discussed with patient, patient does exhibit good understanding of renal issues We'll continue to follow and make recommendation from renal standpoint Objective - Vital Signs Vital signs: Vital Signs - 12hr 11/08/18 11/08/18 11/08/18 20:50 21:00 21:10 Temperature Pulse Rate 144 H 142 H 145 H Respiratory 23 35 H 29 H Rate Blood Pressure 97/60 97/60 115/64 O2 Sat by Pulse 97 98 97 Oximetry 11/08/18 11/08/18 11/08/18 21:20 21:30 21:40 Temperature Pulse Rate Respiratory Rate Blood Pressure 115/64 115/64 97/60 O2 Sat by Pulse 99 97 97 Oximetry 11/08/18 11/08/18 11/08/18 21:50 22:00 22:10 Temperature Pulse Rate 148 H Respiratory Rate Blood Pressure 97/60 122/73 122/73 O2 Sat by Pulse 97 98 98 Oximetry 11/08/18 11/08/18 11/08/18 22:20 22:30 22:40 Temperature Pulse Rate 138 H Respiratory 19 Rate Blood Pressure 122/73 122/73 122/73 O2 Sat by Pulse 97 98 98 Oximetry 11/08/18 11/08/18 11/08/18 22:50 23:00 23:10 Temperature Pulse Rate 139 H 136 H 138 H Respiratory 25 H 40 H 28 H Rate Blood Pressure 122/73 122/73 O2 Sat by Pulse 98 98 97 Oximetry 11/08/18 11/08/18 11/08/18 23:20 23:30 23:40 Temperature Pulse Rate 142 H 143 H 144 H Respiratory 38 H 45 H 48 H Rate Blood Pressure 108/78 108/78 108/78 O2 Sat by Pulse 97 96 97 Oximetry 11/08/18 11/09/18 11/09/18 23:50 00:00 00:10 Temperature 102.8 F H Pulse Rate 141 H 138 H 142 H Respiratory 19 41 H 40 H Rate Blood Pressure 108/78 104/65 104/65 O2 Sat by Pulse 98 98 81 L Oximetry 11/09/18 11/09/18 11/09/18 00:20 00:30 00:40 Temperature Pulse Rate 139 H 138 H 138 H Respiratory 44 H 29 H 32 H Rate Blood Pressure 104/65 104/65 104/65 O2 Sat by Pulse 97 98 99 Oximetry 11/09/18 11/09/18 11/09/18 00:50 01:00 01:10 Temperature Pulse Rate 139 H 138 H Respiratory 41 H 17 30 H Rate Blood Pressure 104/65 105/70 105/70 O2 Sat by Pulse 99 99 99 Oximetry 11/09/18 11/09/18 11/09/18 01:20 01:30 01:40 Temperature Pulse Rate 139 H 138 H 139 H Respiratory 21 27 H 37 H Rate Blood Pressure 105/70 105/70 105/70 O2 Sat by Pulse 99 98 99 Oximetry 11/09/18 11/09/18 11/09/18 01:50 03:00 03:10 Temperature Pulse Rate 134 H 137 H 136 H Respiratory 44 H 48 H 63 H Rate Blood Pressure 105/70 114/72 114/72 O2 Sat by Pulse 99 98 98 Oximetry 11/09/18 11/09/18 11/09/18 03:20 03:30 03:40 Temperature Pulse Rate 134 H 134 H 135 H Respiratory 23 18 20 Rate Blood Pressure 114/72 105/70 105/70 O2 Sat by Pulse 98 98 98 Oximetry 11/09/18 11/09/18 11/09/18 03:50 04:00 04:10 Temperature 99.0 F Pulse Rate 137 H 134 H 134 H Respiratory 44 H 39 H 35 H Rate Blood Pressure 105/70 115/69 115/69 O2 Sat by Pulse 99 97 97 Oximetry 11/09/18 11/09/18 11/09/18 04:20 04:30 04:40 Temperature Pulse Rate 133 H 132 H 135 H Respiratory 24 40 H 40 H Rate Blood Pressure 115/69 115/69 115/69 O2 Sat by Pulse 98 99 98 Oximetry 11/09/18 11/09/18 11/09/18 04:50 05:00 05:10 Temperature Pulse Rate 132 H 132 H 130 H Respiratory 40 H 39 H 44 H Rate Blood Pressure 115/69 105/62 105/62 O2 Sat by Pulse 98 98 98 Oximetry 11/09/18 11/09/18 11/09/18 05:20 05:30 05:40 Temperature Pulse Rate 132 H 129 H 131 H Respiratory 28 H 30 H 32 H Rate Blood Pressure 105/62 105/62 105/62 O2 Sat by Pulse 99 99 98 Oximetry 11/09/18 11/09/18 11/09/18 05:50 06:00 06:10 Temperature Pulse Rate 127 H 130 H 129 H Respiratory 26 H 35 H 39 H Rate Blood Pressure 105/62 95/54 95/54 O2 Sat by Pulse 99 99 99 Oximetry 11/09/18 11/09/18 11/09/18 06:20 06:30 06:40 Temperature Pulse Rate 127 H 130 H 128 H Respiratory 38 H 40 H 37 H Rate Blood Pressure 95/54 95/54 95/54 O2 Sat by Pulse 99 98 98 Oximetry 11/09/18 11/09/18 11/09/18 06:50 07:00 07:10 Temperature Pulse Rate 127 H 118 H 129 H Respiratory 27 H 29 H 32 H Rate Blood Pressure 95/54 105/62 105/62 O2 Sat by Pulse 99 98 98 Oximetry 11/09/18 11/09/18 11/09/18 07:20 07:30 07:40 Temperature Pulse Rate 127 H 127 H 127 H Respiratory 37 H 38 H 41 H Rate Blood Pressure 105/62 105/62 105/62 O2 Sat by Pulse 98 99 99 Oximetry 11/09/18 11/09/18 11/09/18 07:50 08:00 08:10 Temperature 99.9 F H Pulse Rate 127 H 122 H 126 H Respiratory 37 H 35 H 40 H Rate Blood Pressure 105/62 101/68 101/68 O2 Sat by Pulse 98 99 99 Oximetry 11/09/18 11/09/18 08:20 08:30 Temperature Pulse Rate 121 H 123 H Respiratory 24 37 H Rate Blood Pressure 101/68 101/68 O2 Sat by Pulse 99 98 Oximetry - Lab 11/09/18 04:57 11/09/18 04:57 Most recent lab results Calcium 8.3 mg/dL (8.4-10.2) L 11/09/18 04:57 Magnesium 1.60 mg/dL (1.7-2.3) L 11/08/18 14:50 Urine Creatinine 84.6 mg/dL (0.1-20.0) H 11/08/18 Unknown Urine Sodium 66 mmol/L 11/08/18 Unknown Urine Total Protein 183 mg/dL (5-11.8) H 11/08/18 Unknown Medications & Allergies - Medications Allergies/Adverse Reactions: Allergies No Known Allergies Allergy (Verified 11/08/18 10:14) Home Medications: Home Medications Medication Instructions Recorded Confirmed Last Taken Type Carvedilol 25 mg PO BID 11/08/18 11/08/18 Unknown History Cetirizine HCl 10 mg PO DAILY 11/08/18 11/08/18 Unknown History Fenofibrate 160 mg PO HS 11/08/18 11/08/18 Unknown History Lovastatin 40 mg PO DAILY 11/08/18 11/08/18 Unknown History Olmesartan/Hctz 40/12.5MG 40 mg PO DAILY 11/08/18 11/08/18 Unknown History chlorproMAZINE 25 mg PO TID 11/08/18 11/08/18 Unknown History metFORMIN 1,000 mg PO BID 11/08/18 11/08/18 Unknown History traZODone 150 mg PO DAILY 11/08/18 11/08/18 Unknown History Active Medications: Generic Name Dose Route Start Last Admin Trade Name Freq PRN Reason Stop Dose Admin Acetaminophen 650 mg 11/08/18 23:43 11/09/18 01:21 Tylenol PO 650 mg Q4H PRN Administration Pain MILD(1-3)/Fever >100.5/SEO Famotidine 10 mg 11/08/18 14:00 11/08/18 22:38 Pepcid PO 10 mg BID CHRISSY Administration Sodium Chloride 100 mls @ 999 mls/hr 11/08/18 13:08 Nacl 0.9% IV YAHAIRA PRN Hypotension Levofloxacin/Dextrose 750 mg in 150 mls @ 100 mls/hr 11/09/18 10:00 Levaquin 750mg/150ml IV 11/09/18 11:29 Q24HR CHRISSY Protocol Levofloxacin/Dextrose 500 mg in 100 mls @ 100 mls/hr 11/10/18 10:00 Levaquin 500mg/100ml IV Q48HR CHRISSY Insulin Human Regular 0 units 11/09/18 07:30 Humulin R SUB-Q ACHS CHRISSY Protocol Lorazepam 2 mg 11/08/18 13:43 11/08/18 23:04 Ativan IV 2 mg Q1H PRN Administration CIWA-Ar 8-15 Sodium Chloride 10 ml 11/08/18 22:00 11/09/18 05:58 Sodium Chloride Flush Syringe 10 Ml IV 10 ml BID CHRISSY Administration Sodium Chloride 10 ml 11/08/18 13:33 Sodium Chloride Flush Syringe 10 Ml IV PRN PRN LINE FLUSH
[2018-11-09] MEDS ORDERED: LEVAQUIN 750MG/150ML 750 MG/150 ML BAG IV SCH (10:00)
--- NOTE | 2018-11-09 11:47 | Progress Note ---
Assessment and Plan Assessment and plan: Acute pancreatitis. Continue IV fluid hydration. Follow serial lipase. GI consultation. Acute renal failure. Nephrology . Patient has received urgent hemodialysis. Vascular surgery was consult for access. Continue to monitor BMP. Hyperkalemia. Etiology secondary to above. Resolved with hemodialysis. Continue to monitor. SIRS with acute organ dysfunction. Patient received 1 dose of antibiotics in the emergency department. We will continue to monitor off antibiotics for now. No evidence of infectious etiology. EtOH abuse. Continue CIWA protocol. History Interval history: No new issues overnight. Hospitalist Physical - Constitutional Vitals: Temp Pulse Resp BP Pulse Ox 99.9 F H 123 H 37 H 101/68 98 11/09/18 08:00 11/09/18 08:30 11/09/18 08:30 11/09/18 08:30 11/09/18 08:30 General appearance: Present: no acute distress, other (occasional tremors) - EENT Eyes: Present: PERRL, EOM intact ENT: hearing intact, clear oral mucosa, dentition normal - Neck Neck: Present: supple, normal ROM - Respiratory Respiratory effort: normal Respiratory: bilateral: CTA - Cardiovascular Rhythm: regular Heart Sounds: Present: S1 & S2. Absent: gallop, rub - Extremities Extremities: no ischemia, No edema, Full ROM - Abdominal General gastrointestinal: soft, tender, non-distended, normal bowel sounds Localized gastrointestinal: tender: epigastric periumbilical (mild) - Integumentary Integumentary: Present: clear, warm, dry - Neurologic Neurologic: CNII-XII intact, moves all extremities Results - Labs CBC & Chem 7: 11/09/18 04:57 11/09/18 04:57 Labs: Laboratory Last Values WBC 10.3 K/mm3 (4.5-11.0) 11/09/18 04:57 RBC 3.16 M/mm3 (3.65-5.03) L 11/09/18 04:57 Hgb 11.2 gm/dl (11.8-15.2) L 11/09/18 04:57 Hct 31.9 % (35.5-45.6) L D 11/09/18 04:57 MCV 101 fl (84-94) H 11/09/18 04:57 MCH 36 pg (28-32) H 11/09/18 04:57 MCHC 35 % (32-34) H 11/09/18 04:57 RDW 16.1 % (13.2-15.2) H 11/09/18 04:57 Plt Count 103 K/mm3 (140-440) L 11/09/18 04:57 Add Manual Diff Complete 11/08/18 11:05 Total Counted 100 11/08/18 11:05 Seg Neuts % (Manual) 84.0 % (40.0-70.0) H 11/08/18 11:05 Band Neutrophils % 5.0 % 11/08/18 11:05 Lymphocytes % (Manual) 6.0 % (13.4-35.0) L 11/08/18 11:05 Reactive Lymphs % (Man) 0 % 11/08/18 11:05 Monocytes % (Manual) 5.0 % (0.0-7.3) 11/08/18 11:05 Eosinophils % (Manual) 0 % (0.0-4.3) 11/08/18 11:05 Basophils % (Manual) 0 % (0.0-1.8) 11/08/18 11:05 Metamyelocytes % 0 % 11/08/18 11:05 Myelocytes % 0 % 11/08/18 11:05 Promyelocytes % 0 % 11/08/18 11:05 Blast Cells % 0 % 11/08/18 11:05 Nucleated RBC % Not Reportable 11/08/18 11:05 Seg Neutrophils # Man 15.5 K/mm3 (1.8-7.7) H 11/08/18 11:05 Band Neutrophils # 0.9 K/mm3 11/08/18 11:05 Lymphocytes # (Manual) 1.1 K/mm3 (1.2-5.4) L 11/08/18 11:05 Abs React Lymphs (Man) 0.0 K/mm3 11/08/18 11:05 Monocytes # (Manual) 0.9 K/mm3 (0.0-0.8) H 11/08/18 11:05 Eosinophils # (Manual) 0.0 K/mm3 (0.0-0.4) 11/08/18 11:05 Basophils # (Manual) 0.0 K/mm3 (0.0-0.1) 11/08/18 11:05 Metamyelocytes # 0.0 K/mm3 11/08/18 11:05 Myelocytes # 0.0 K/mm3 11/08/18 11:05 Promyelocytes # 0.0 K/mm3 11/08/18 11:05 Blast Cells # 0.0 K/mm3 11/08/18 11:05 WBC Morphology Not Reportable 11/08/18 11:05 Hypersegmented Neuts Not Reportable 11/08/18 11:05 Hyposegmented Neuts Not Reportable 11/08/18 11:05 Hypogranular Neuts Not Reportable 11/08/18 11:05 Smudge Cells Not Reportable 11/08/18 11:05 Toxic Granulation Not Reportable 11/08/18 11:05 Toxic Vacuolation Not Reportable 11/08/18 11:05 Dohle Bodies Not Reportable 11/08/18 11:05 Pelger-Huet Anomaly Not Reportable 11/08/18 11:05 Kathie Rods Not Reportable 11/08/18 11:05 Platelet Estimate Consistent w auto 11/08/18 11:05 Clumped Platelets Not Reportable 11/08/18 11:05 Plt Clumps, EDTA Not Reportable 11/08/18 11:05 Large Platelets Not Reportable 11/08/18 11:05 Giant Platelets Not Reportable 11/08/18 11:05 Platelet Satelliting Not Reportable 11/08/18 11:05 Plt Morphology Comment Not Reportable 11/08/18 11:05 RBC Morphology Not Reportable 11/08/18 11:05 Dimorphic RBCs Not Reportable 11/08/18 11:05 Polychromasia Not Reportable 11/08/18 11:05 Hypochromasia Not Reportable 11/08/18 11:05 Poikilocytosis Not Reportable 11/08/18 11:05 Anisocytosis 1+ 11/08/18 11:05 Microcytosis Not Reportable 11/08/18 11:05 Macrocytosis 1+ 11/08/18 11:05 Spherocytes Not Reportable 11/08/18 11:05 Pappenheimer Bodies Not Reportable 11/08/18 11:05 Sickle Cells Not Reportable 11/08/18 11:05 Target Cells Not Reportable 11/08/18 11:05 Tear Drop Cells Not Reportable 11/08/18 11:05 Ovalocytes Not Reportable 11/08/18 11:05 Helmet Cells Not Reportable 11/08/18 11:05 Hebert-[place] Bodies Not Reportable 11/08/18 11:05 [place] Rings Not Reportable 11/08/18 11:05 Mateusz Cells Not Reportable 11/08/18 11:05 Bite Cells Not Reportable 11/08/18 11:05 Crenated Cell Not Reportable 11/08/18 11:05 Elliptocytes Not Reportable 11/08/18 11:05 Acanthocytes (Spur) Not Reportable 11/08/18 11:05 Rouleaux Not Reportable 11/08/18 11:05 Hemoglobin C Crystals Not Reportable 11/08/18 11:05 Schistocytes Not Reportable 11/08/18 11:05 Malaria parasites Not Reportable 11/08/18 11:05 Damion Bodies Not Reportable 11/08/18 11:05 Hem Pathologist Commnt No 11/08/18 11:05 PT 16.4 Sec. (12.2-14.9) H 11/08/18 11:05 INR 1.24 (0.87-1.13) H 11/08/18 11:05 APTT 33.9 Sec. (24.2-36.6) 11/08/18 11:05 Sodium 136 mmol/L (137-145) L 11/09/18 04:57 Potassium 3.9 mmol/L (3.6-5.0) 11/09/18 04:57 Chloride 92.7 mmol/L (98-107) L 11/09/18 04:57 Carbon Dioxide 28 mmol/L (22-30) 11/09/18 04:57 Anion Gap 19 mmol/L 11/09/18 04:57 BUN 15 mg/dL (9-20) 11/09/18 04:57 Creatinine 1.9 mg/dL (0.8-1.5) H 11/09/18 04:57 Estimated GFR 37 ml/min 11/09/18 04:57 BUN/Creatinine Ratio 8 % 11/09/18 04:57 Glucose 235 mg/dL (75-100) H 11/09/18 04:57 POC Glucose 248 (70-105) H 11/09/18 08:23 Calcium 8.3 mg/dL (8.4-10.2) L 11/09/18 04:57 Magnesium 1.60 mg/dL (1.7-2.3) L 11/08/18 14:50 Total Bilirubin 1.30 mg/dL (0.1-1.2) H 11/08/18 11:05 AST 128 units/L (5-40) H 11/08/18 11:05 ALT 32 units/L (7-56) 11/08/18 11:05 Alkaline Phosphatase 38 units/L (35-129) 11/08/18 11:05 Ammonia < 10.0 umol/L (25-60) L 11/08/18 15:26 Total Creatine Kinase 159 units/L (55-170) 11/08/18 11:05 CK-MB (CK-2) 1.1 ng/mL (0.0-4.0) 11/08/18 11:05 CK-MB (CK-2) Rel Index 0.6 (0-4) 11/08/18 11:05 Troponin T < 0.010 ng/mL (0.00-0.029) 11/08/18 11:05 Total Protein 7.9 g/dL (6.3-8.2) 11/08/18 11:05 Albumin 3.8 g/dL (3.9-5) L 11/08/18 11:05 Albumin/Globulin Ratio 0.9 % 11/08/18 11:05 Lipase 3006 units/L (13-60) H 11/08/18 11:05 TSH 9.780 mlU/mL (0.270-4.200) H 11/08/18 11:05 Free T4 1.21 ng/dL (0.76-1.46) 11/08/18 11:05 Urine Color Yellow (Yellow) 11/08/18 13:04 Urine Turbidity Slightly-cloudy (Clear) 11/08/18 13:04 Urine pH 5.0 (5.0-7.0) 11/08/18 13:04 Ur Specific [place] 1.022 (1.003-1.030) 11/08/18 13:04 Urine Protein 100 mg/dl mg/dL (Negative) 11/08/18 13:04 Urine Glucose (UA) >=500 mg/dL (Negative) 11/08/18 13:04 Urine Ketones Neg mg/dL (Negative) 11/08/18 13:04 Urine Blood Mod (Negative) 11/08/18 13:04 Urine Nitrite Neg (Negative) 11/08/18 13:04 Urine Bilirubin Neg (Negative) 11/08/18 13:04 Urine Urobilinogen < 2.0 mg/dL (<2.0) 11/08/18 13:04 Ur Leukocyte Esterase Neg (Negative) 11/08/18 13:04 Urine WBC (Auto) 2.0 /HPF (0.0-6.0) 11/08/18 13:04 Urine RBC (Auto) 1.0 /HPF (0.0-6.0) 11/08/18 13:04 U Epithel Cells (Auto) 1.0 /HPF (0-13.0) 11/08/18 13:04 Urine Mucus Few /HPF 11/08/18 13:04 Urine Creatinine 84.6 mg/dL (0.1-20.0) H 11/08/18 Unknown Urine Sodium 66 mmol/L 11/08/18 Unknown Urine Total Protein 183 mg/dL (5-11.8) H 11/08/18 Unknown Urine Opiates Screen Presumptive negative 11/08/18 13:04 Urine Methadone Screen Presumptive negative 11/08/18 13:04 Ur Barbiturates Screen Presumptive negative 11/08/18 13:04 Ur Phencyclidine Scrn Presumptive negative 11/08/18 13:04 Ur Amphetamines Screen Presumptive negative 11/08/18 13:04 U Benzodiazepines Scrn Presumptive negative 11/08/18 13:04 Urine Cocaine Screen Presumptive negative 11/08/18 13:04 U Marijuana (THC) Screen Presumptive negative 11/08/18 13:04 Drugs of Abuse Note Disclamer 11/08/18 13:04 Plasma/Serum Alcohol < 0.01 % (0-0.07) 11/08/18 11:05 Hepatitis A IgM Ab Non-reactive (NonReactive) 11/08/18 11:05 Hep Bs Antigen Non-reactive (Negative) 11/08/18 11:05 Hep B Core IgM Ab Non-reactive (NonReactive) 11/08/18 11:05 Hepatitis C Antibody Non-reactive (NonReactive) 11/08/18 11:05 Blood Type O POSITIVE 11/08/18 11:13 Antibody Screen Negative 11/08/18 11:13
[2018-11-09] MEDS: HumuLIN R SUB-Q SCH ×4 (14:10→21:48)
[2018-11-09] MEDS: ATIVAN IV PRN ×2 (15:18→16:43)
[2018-11-09] MEDS: PEPCID PO SCH ×2 (15:19→21:49)
[2018-11-09 15:44] LABS: Calcium 7.7 mg/dL (8.4-10.2); Uric Acid 1.7 mg/dL (3.5-7.6)
[2018-11-09] MEDS: KCL 20 MEQ in D5W 1,000 ML IV SCH (22:02)
[2018-11-10] MEDS: TYLENOL PO PRN ×2 (00:30→10:22)
[2018-11-10] MEDS: KCL 20 MEQ in D5W 1,000 ML IV SCH ×2 (06:15→12:46)
[2018-11-10 06:21] LABS: Hematocrit 26.7 % (35.5-45.6); Hemoglobin 9.4 gm/dl (11.8-15.2); Mean Corpuscular HGB Conc 35 % (32-34); Mean Corpuscular Volume 100 fl (84-94); Red Blood Count 2.68 M/mm3 (3.65-5.03); Red Cell Distribution Width 16.2 % (13.2-15.2)
[2018-11-10 06:25] LABS: Platelet Count 97 K/mm3 (140-440)
[2018-11-10] MEDS: ATIVAN IV PRN (06:31)
[2018-11-10 06:46] LABS: Calcium 7.2 mg/dL (8.4-10.2)
--- NOTE | 2018-11-10 08:52 | XRay Report ---
AP CHEST: HISTORY: Fever AP view of the chest demonstrates a normal mediastinal and cardiac contour with clear lungs and normal bony and soft tissue structures. IMPRESSION: Unremarkable AP chest.
[2018-11-10] MEDS ORDERED: LEVAQUIN 500MG/100ML 500 MG/100 ML BAG IV SCH (10:00)
[2018-11-10] MEDS: HumuLIN R SUB-Q SCH ×4 (10:22→21:32)
[2018-11-10] MEDS: PEPCID PO SCH ×2 (10:22→21:31)
[2018-11-10] MEDS: SODIUM CHLORIDE FLUSH SYRINGE 10 ML IV SCH ×2 (10:23→21:32)
--- NOTE | 2018-11-10 10:25 | Progress Note ---
Subjective Interval history: Patient was seen today for follow-up on multiple renal related issues Events of this hospitalization noted has had hemodialysis yesterday Potassium is much better today. Sodium is currently at 132 to admission sodium was 127 Patient denies having any chest pain pressure or shortness of breath Vitals labs intake output medications were reviewed Social history: Reviewed Allergies: Reviewed Family history: Reviewed Physical examination HEENT: Oral mucosa moist no pallor or icterus Neck: Supple no JVD Chest: Clear to auscultation anteriorly CVS: Regular rate and rhythm S1 and S2 heard Abdomen: Soft nontender no suprapubic masses no organomegaly appreciable Extremity: Dry skin less than 1+ peripheral edema Musculoskeletal: No joint effusion noted in knees and ankle Neurological: Alert awake Dermatology: No petechial rashes Psychiatry: No evidence of any agitation and aggression noted Assessment and plan Acute renal failure mostly resulting from volume depletion, patient does have some risk factor for chronic kidney disease current creatinine is 2.1 Hyponatremia slowly improving continue with her current fluid, admission sodium was around 127 currently around 132 Dialysis catheter can be removed now Hyperkalemia appears to have resolved this was mostly resulting from angiotensin receptor jimmy as well as renal failure Dehydration due to poor by mouth intake patient was also taking hydrochlor othiazide that should be avoided altogether Continue to monitor renal function follow-up on the labs Chronic alcohol abuse patient may need rehabilitation and psychiatry evaluation/ If stable can be considered for discharge tomorrow to follow-up in the office We'll continue to follow and make recommendation from renal standpoint Objective - Vital Signs Vital signs: Vital Signs - 12hr 11/09/18 11/09/18 11/09/18 22:30 22:40 22:50 Temperature Pulse Rate 135 H 139 H 135 H Pulse Rate [ From Monitor] Respiratory 42 H 29 H 42 H Rate Blood Pressure 133/94 133/94 133/94 O2 Sat by Pulse 99 99 98 Oximetry 11/09/18 11/09/18 11/09/18 23:00 23:10 23:20 Temperature Pulse Rate 137 H 132 H 130 H Pulse Rate [ From Monitor] Respiratory 56 H 42 H 27 H Rate Blood Pressure 144/84 144/84 144/84 O2 Sat by Pulse 100 97 98 Oximetry 11/09/18 11/09/18 11/09/18 23:24 23:30 23:40 Temperature Pulse Rate 130 H 131 H 130 H Pulse Rate [ From Monitor] Respiratory 47 H 48 H 28 H Rate Blood Pressure 144/84 144/84 144/84 O2 Sat by Pulse 98 97 98 Oximetry 11/09/18 11/10/18 11/10/18 23:50 00:00 00:10 Temperature 101.9 F H Pulse Rate 131 H 132 H 131 H Pulse Rate [ 128 H From Monitor] Respiratory 47 H 38 H 44 H Rate Blood Pressure 144/84 154/80 154/80 O2 Sat by Pulse 99 98 99 Oximetry 11/10/18 11/10/18 11/10/18 00:20 00:30 00:40 Temperature Pulse Rate 129 H 135 H 124 H Pulse Rate [ From Monitor] Respiratory 41 H 29 H 29 H Rate Blood Pressure 154/80 154/80 154/80 O2 Sat by Pulse 97 99 98 Oximetry 11/10/18 11/10/18 11/10/18 00:50 01:00 01:10 Temperature Pulse Rate 123 H 127 H 123 H Pulse Rate [ From Monitor] Respiratory 25 H 38 H 41 H Rate Blood Pressure 154/80 138/74 138/74 O2 Sat by Pulse 98 98 98 Oximetry 11/10/18 11/10/18 11/10/18 01:20 01:30 01:40 Temperature Pulse Rate 125 H 127 H 125 H Pulse Rate [ From Monitor] Respiratory 42 H 38 H 41 H Rate Blood Pressure 138/74 138/74 138/74 O2 Sat by Pulse 98 99 99 Oximetry 11/10/18 11/10/18 11/10/18 01:50 02:00 02:10 Temperature Pulse Rate 124 H 121 H 123 H Pulse Rate [ From Monitor] Respiratory 42 H 39 H 45 H Rate Blood Pressure 138/74 131/76 131/76 O2 Sat by Pulse 99 99 99 Oximetry 11/10/18 11/10/18 11/10/18 02:20 02:30 02:40 Temperature Pulse Rate 125 H 123 H 126 H Pulse Rate [ From Monitor] Respiratory 43 H 43 H 43 H Rate Blood Pressure 131/76 131/76 131/76 O2 Sat by Pulse 98 99 99 Oximetry 11/10/18 11/10/18 11/10/18 02:50 03:00 03:10 Temperature Pulse Rate 127 H 122 H 127 H Pulse Rate [ From Monitor] Respiratory 37 H 42 H 41 H Rate Blood Pressure 131/76 131/76 144/72 O2 Sat by Pulse 99 99 100 Oximetry 11/10/18 11/10/18 11/10/18 03:20 03:30 03:40 Temperature Pulse Rate 121 H 114 H 116 H Pulse Rate [ From Monitor] Respiratory 42 H 24 39 H Rate Blood Pressure 144/72 144/72 144/72 O2 Sat by Pulse 99 100 99 Oximetry 11/10/18 11/10/18 11/10/18 03:50 04:00 04:10 Temperature 100.4 F H Pulse Rate 118 H 119 H 119 H Pulse Rate [ 125 H From Monitor] Respiratory 35 H 43 H 34 H Rate Blood Pressure 144/72 129/82 129/82 O2 Sat by Pulse 99 100 99 Oximetry 11/10/18 11/10/18 11/10/18 04:20 04:30 04:40 Temperature Pulse Rate 126 H 118 H 125 H Pulse Rate [ From Monitor] Respiratory 33 H 37 H 34 H Rate Blood Pressure 129/82 129/82 129/82 O2 Sat by Pulse 100 100 100 Oximetry 11/10/18 11/10/18 11/10/18 04:50 05:00 05:10 Temperature Pulse Rate 128 H 124 H 126 H Pulse Rate [ From Monitor] Respiratory 43 H 44 H 20 Rate Blood Pressure 129/82 129/82 129/82 O2 Sat by Pulse 99 100 99 Oximetry 11/10/18 11/10/18 11/10/18 05:20 05:30 05:40 Temperature Pulse Rate 122 H 119 H 119 H Pulse Rate [ From Monitor] Respiratory 43 H 42 H 41 H Rate Blood Pressure 129/82 129/82 129/82 O2 Sat by Pulse 100 100 99 Oximetry 11/10/18 11/10/18 11/10/18 05:50 06:00 06:10 Temperature Pulse Rate 114 H 114 H 115 H Pulse Rate [ From Monitor] Respiratory 25 H 38 H 36 H Rate Blood Pressure 129/82 140/92 140/92 O2 Sat by Pulse 99 100 99 Oximetry 11/10/18 11/10/18 11/10/18 06:20 06:30 06:40 Temperature Pulse Rate 116 H 118 H 114 H Pulse Rate [ From Monitor] Respiratory 45 H 27 H 27 H Rate Blood Pressure 140/92 140/92 140/92 O2 Sat by Pulse 100 100 100 Oximetry 11/10/18 11/10/18 11/10/18 06:50 07:01 07:10 Temperature Pulse Rate 115 H 110 H 115 H Pulse Rate [ From Monitor] Respiratory 25 H 22 37 H Rate Blood Pressure 140/92 101/65 101/65 O2 Sat by Pulse 100 100 99 Oximetry 11/10/18 11/10/18 11/10/18 07:21 07:31 07:37 Temperature 101.1 F H Pulse Rate 112 H 112 H Pulse Rate [ From Monitor] Respiratory 32 H 38 H Rate Blood Pressure 140/92 140/92 O2 Sat by Pulse 100 99 Oximetry 11/10/18 11/10/18 11/10/18 07:41 07:51 10:08 Temperature Pulse Rate 113 H 112 H Pulse Rate [ From Monitor] Respiratory 34 H 40 H Rate Blood Pressure 101/65 101/65 O2 Sat by Pulse 100 100 100 Oximetry - Lab 11/10/18 05:37 11/10/18 05:37 Most recent lab results Calcium 7.2 mg/dL (8.4-10.2) L 11/10/18 05:37 Magnesium 1.60 mg/dL (1.7-2.3) L 11/08/18 14:50 Urine Creatinine 84.6 mg/dL (0.1-20.0) H 11/08/18 Unknown Urine Sodium 66 mmol/L 11/08/18 Unknown Urine Total Protein 183 mg/dL (5-11.8) H 11/08/18 Unknown Medications & Allergies - Medications Allergies/Adverse Reactions: Allergies No Known Allergies Allergy (Verified 11/08/18 10:14) Home Medications: Home Medications Medication Instructions Recorded Confirmed Last Taken Type Carvedilol 25 mg PO BID 11/08/18 11/08/18 Unknown History Cetirizine HCl 10 mg PO DAILY 11/08/18 11/08/18 Unknown History Fenofibrate 160 mg PO HS 11/08/18 11/08/18 Unknown History Lovastatin 40 mg PO DAILY 11/08/18 11/08/18 Unknown History Olmesartan/Hctz 40/12.5MG 40 mg PO DAILY 11/08/18 11/08/18 Unknown History chlorproMAZINE 25 mg PO TID 11/08/18 11/08/18 Unknown History metFORMIN 1,000 mg PO BID 11/08/18 11/08/18 Unknown History traZODone 150 mg PO DAILY 11/08/18 11/08/18 Unknown History Active Medications: Generic Name Dose Route Start Last Admin Trade Name Patricioq PRN Reason Stop Dose Admin Acetaminophen 650 mg 11/08/18 23:43 11/10/18 10:22 Tylenol PO 650 mg Q4H PRN Administration Pain MILD(1-3)/Fever >100.5/SEO Famotidine 10 mg 11/08/18 14:00 11/10/18 10:22 Pepcid PO 10 mg BID CHRISSY Administration Sodium Chloride 100 mls @ 999 mls/hr 11/08/18 13:08 Nacl 0.9% IV YAHAIRA PRN Hypotension Levofloxacin/Dextrose 500 mg in 100 mls @ 100 mls/hr 11/10/18 10:00 11/10/18 10:22 Levaquin 500mg/100ml IV 100 mls/hr Q48HR CHRISSY Administration Potassium Chloride 20 meq/ 1,010 mls @ 150 mls/hr 11/09/18 09:45 11/10/18 06:15 Dextrose IV 150 mls/hr DIRECT CHRISSY Administration Insulin Human Regular 0 units 11/09/18 07:30 11/10/18 10:22 Humulin R SUB-Q 3 units ACHS CHRISSY Administration Protocol Lorazepam 2 mg 11/08/18 13:43 11/10/18 06:31 Ativan IV 2 mg Q1H PRN Administration CIWA-Ar 8-15 Sodium Chloride 10 ml 11/08/18 22:00 11/10/18 10:23 Sodium Chloride Flush Syringe 10 Ml IV 10 ml BID CHRISSY Administration Sodium Chloride 10 ml 11/08/18 13:33 Sodium Chloride Flush Syringe 10 Ml IV PRN PRN LINE FLUSH
[2018-11-10 10:42] LABS: Band Neutrophils # (Manual) 0.5 K/mm3; Basophils % (Manual) 0 % (0.0-1.8); Eosinophils % (Manual) 0 % (0.0-4.3); Total Cells Counted 100
[2018-11-10 10:43] LABS: Hypochromasia 1+; Platelet Estimate Consistent w Auto; Stomatocytes 1+
--- NOTE | 2018-11-10 11:59 | Progress Note ---
Assessment and Plan Assessment and plan: Acute pancreatitis. Continue IV fluid hydration. Follow serial lipase. GI consultation. Acute renal failure. Nephrology following. Patient has received urgent hemodialysis. Vascular surgery was consulted for access. Continue to monitor BMP. Hyperkalemia. Etiology secondary to above. Resolved with hemodialysis. Continue to monitor. SIRS with acute organ dysfunction. Blood cultures are negative. Continue Levaquin. UA negative. Chest x-ray negative. EtOH abuse/withdrawal. Continue CIWA protocol. Restraints for safety. History Interval history: No new issues overnight. Hospitalist Physical - Constitutional Vitals: Temp Pulse Resp BP Pulse Ox 101.1 F H 112 H 40 H 101/65 100 11/10/18 07:37 11/10/18 07:51 11/10/18 07:51 11/10/18 07:51 11/10/18 10:08 General appearance: Present: no acute distress, other (occasional tremors) - EENT Eyes: Present: PERRL, EOM intact ENT: hearing intact, clear oral mucosa, dentition normal - Neck Neck: Present: supple, normal ROM - Respiratory Respiratory effort: normal Respiratory: bilateral: CTA - Cardiovascular Rhythm: regular Heart Sounds: Present: S1 & S2. Absent: gallop, rub - Extremities Extremities: no ischemia, No edema, Full ROM - Abdominal General gastrointestinal: soft, non-tender, non-distended, normal bowel sounds - Integumentary Integumentary: Present: clear, warm, dry - Neurologic Neurologic: CNII-XII intact, moves all extremities Results - Labs CBC & Chem 7: 11/10/18 05:37 11/10/18 05:37 Labs: Laboratory Last Values WBC 7.5 K/mm3 (4.5-11.0) 11/10/18 05:37 RBC 2.68 M/mm3 (3.65-5.03) L 11/10/18 05:37 Hgb 9.4 gm/dl (11.8-15.2) L 11/10/18 05:37 Hct 26.7 % (35.5-45.6) L 11/10/18 05:37 MCV 100 fl (84-94) H 11/10/18 05:37 MCH 35 pg (28-32) H 11/10/18 05:37 MCHC 35 % (32-34) H 11/10/18 05:37 RDW 16.2 % (13.2-15.2) H 11/10/18 05:37 Plt Count 97 K/mm3 (140-440) L 11/10/18 05:37 Add Manual Diff Complete 11/10/18 05:37 Total Counted 100 11/10/18 05:37 Seg Neuts % (Manual) 90.0 % (40.0-70.0) H 11/10/18 05:37 Band Neutrophils % 7.0 % 11/10/18 05:37 Lymphocytes % (Manual) 1.0 % (13.4-35.0) L 11/10/18 05:37 Reactive Lymphs % (Man) 0 % 11/10/18 05:37 Monocytes % (Manual) 2.0 % (0.0-7.3) 11/10/18 05:37 Eosinophils % (Manual) 0 % (0.0-4.3) 11/10/18 05:37 Basophils % (Manual) 0 % (0.0-1.8) 11/10/18 05:37 Metamyelocytes % 0 % 11/10/18 05:37 Myelocytes % 0 % 11/10/18 05:37 Promyelocytes % 0 % 11/10/18 05:37 Blast Cells % 0 % 11/10/18 05:37 Nucleated RBC % Not Reportable 11/10/18 05:37 Seg Neutrophils # Man 6.8 K/mm3 (1.8-7.7) 11/10/18 05:37 Band Neutrophils # 0.5 K/mm3 11/10/18 05:37 Lymphocytes # (Manual) 0.1 K/mm3 (1.2-5.4) L 11/10/18 05:37 Abs React Lymphs (Man) 0.0 K/mm3 11/10/18 05:37 Monocytes # (Manual) 0.2 K/mm3 (0.0-0.8) 11/10/18 05:37 Eosinophils # (Manual) 0.0 K/mm3 (0.0-0.4) 11/10/18 05:37 Basophils # (Manual) 0.0 K/mm3 (0.0-0.1) 11/10/18 05:37 Metamyelocytes # 0.0 K/mm3 11/10/18 05:37 Myelocytes # 0.0 K/mm3 11/10/18 05:37 Promyelocytes # 0.0 K/mm3 11/10/18 05:37 Blast Cells # 0.0 K/mm3 11/10/18 05:37 WBC Morphology Not Reportable 11/10/18 05:37 Hypersegmented Neuts Not Reportable 11/10/18 05:37 Hyposegmented Neuts Not Reportable 11/10/18 05:37 Hypogranular Neuts Not Reportable 11/10/18 05:37 Smudge Cells Not Reportable 11/10/18 05:37 Toxic Granulation Not Reportable 11/10/18 05:37 Toxic Vacuolation Not Reportable 11/10/18 05:37 Dohle Bodies Not Reportable 11/10/18 05:37 Pelger-Huet Anomaly Not Reportable 11/10/18 05:37 Kathie Rods Not Reportable 11/10/18 05:37 Platelet Estimate Consistent w auto 11/10/18 05:37 Clumped Platelets Not Reportable 11/10/18 05:37 Plt Clumps, EDTA Not Reportable 11/10/18 05:37 Large Platelets Not Reportable 11/10/18 05:37 Giant Platelets Not Reportable 11/10/18 05:37 Platelet Satelliting Not Reportable 11/10/18 05:37 Plt Morphology Comment Not Reportable 11/10/18 05:37 RBC Morphology Not Reportable 11/10/18 05:37 Dimorphic RBCs Not Reportable 11/10/18 05:37 Polychromasia Not Reportable 11/10/18 05:37 Hypochromasia 1+ 11/10/18 05:37 Poikilocytosis Not Reportable 11/10/18 05:37 Anisocytosis Not Reportable 11/10/18 05:37 Microcytosis Not Reportable 11/10/18 05:37 Macrocytosis Not Reportable 11/10/18 05:37 Spherocytes Not Reportable 11/10/18 05:37 Pappenheimer Bodies Not Reportable 11/10/18 05:37 Sickle Cells Not Reportable 11/10/18 05:37 Target Cells Not Reportable 11/10/18 05:37 Tear Drop Cells Not Reportable 11/10/18 05:37 Ovalocytes Not Reportable 11/10/18 05:37 Stomatocytes 1+ 11/10/18 05:37 Helmet Cells Not Reportable 11/10/18 05:37 Hebert-Morrison Bodies Not Reportable 11/10/18 05:37 Fleischmanns Rings Not Reportable 11/10/18 05:37 Mateusz Cells Not Reportable 11/10/18 05:37 Bite Cells Not Reportable 11/10/18 05:37 Crenated Cell Not Reportable 11/10/18 05:37 Elliptocytes Not Reportable 11/10/18 05:37 Acanthocytes (Spur) Not Reportable 11/10/18 05:37 Rouleaux Not Reportable 11/10/18 05:37 Hemoglobin C Crystals Not Reportable 11/10/18 05:37 Schistocytes Not Reportable 11/10/18 05:37 Malaria parasites Not Reportable 11/10/18 05:37 Damion Bodies Not Reportable 11/10/18 05:37 Hem Pathologist Commnt No 11/10/18 05:37 PT 16.4 Sec. (12.2-14.9) H 11/08/18 11:05 INR 1.24 (0.87-1.13) H 11/08/18 11:05 APTT 33.9 Sec. (24.2-36.6) 11/08/18 11:05 Sodium 132 mmol/L (137-145) L 11/10/18 05:37 Potassium 3.7 mmol/L (3.6-5.0) 11/10/18 05:37 Chloride 90.5 mmol/L (98-107) L 11/10/18 05:37 Carbon Dioxide 26 mmol/L (22-30) 11/10/18 05:37 Anion Gap 19 mmol/L 11/10/18 05:37 BUN 24 mg/dL (9-20) H 11/10/18 05:37 Creatinine 2.1 mg/dL (0.8-1.5) H 11/10/18 05:37 Estimated GFR 33 ml/min 11/10/18 05:37 BUN/Creatinine Ratio 11 % 11/10/18 05:37 Glucose 236 mg/dL (75-100) H 11/10/18 05:37 POC Glucose 235 (70-105) H 11/09/18 21:37 Osmolality 295 Mosm/kg 11/09/18 13:29 Uric Acid 1.7 mg/dL (3.5-7.6) L 11/09/18 15:04 Calcium 7.2 mg/dL (8.4-10.2) L 11/10/18 05:37 Magnesium 1.60 mg/dL (1.7-2.3) L 11/08/18 14:50 Total Bilirubin 1.30 mg/dL (0.1-1.2) H 11/08/18 11:05 AST 128 units/L (5-40) H 11/08/18 11:05 ALT 32 units/L (7-56) 11/08/18 11:05 Alkaline Phosphatase 38 units/L (35-129) 11/08/18 11:05 Ammonia < 10.0 umol/L (25-60) L 11/08/18 15:26 Total Creatine Kinase 159 units/L (55-170) 11/08/18 11:05 CK-MB (CK-2) 1.1 ng/mL (0.0-4.0) 11/08/18 11:05 CK-MB (CK-2) Rel Index 0.6 (0-4) 11/08/18 11:05 Troponin T < 0.010 ng/mL (0.00-0.029) 11/08/18 11:05 Total Protein 7.9 g/dL (6.3-8.2) 11/08/18 11:05 Albumin 3.8 g/dL (3.9-5) L 11/08/18 11:05 Albumin/Globulin Ratio 0.9 % 11/08/18 11:05 Lipase 123 units/L (13-60) H 11/10/18 05:37 TSH 9.780 mlU/mL (0.270-4.200) H 11/08/18 11:05 Free T4 1.21 ng/dL (0.76-1.46) 11/08/18 11:05 Urine Color Yellow (Yellow) 11/08/18 13:04 Urine Turbidity Slightly-cloudy (Clear) 11/08/18 13:04 Urine pH 5.0 (5.0-7.0) 11/08/18 13:04 Ur Specific [place] 1.022 (1.003-1.030) 11/08/18 13:04 Urine Protein 100 mg/dl mg/dL (Negative) 11/08/18 13:04 Urine Glucose (UA) >=500 mg/dL (Negative) 11/08/18 13:04 Urine Ketones Neg mg/dL (Negative) 11/08/18 13:04 Urine Blood Mod (Negative) 11/08/18 13:04 Urine Nitrite Neg (Negative) 11/08/18 13:04 Urine Bilirubin Neg (Negative) 11/08/18 13:04 Urine Urobilinogen < 2.0 mg/dL (<2.0) 11/08/18 13:04 Ur Leukocyte Esterase Neg (Negative) 11/08/18 13:04 Urine WBC (Auto) 2.0 /HPF (0.0-6.0) 11/08/18 13:04 Urine RBC (Auto) 1.0 /HPF (0.0-6.0) 11/08/18 13:04 U Epithel Cells (Auto) 1.0 /HPF (0-13.0) 11/08/18 13:04 Urine Mucus Few /HPF 11/08/18 13:04 Urine Creatinine 84.6 mg/dL (0.1-20.0) H 11/08/18 Unknown Urine Sodium 66 mmol/L 11/08/18 Unknown Urine Total Protein 183 mg/dL (5-11.8) H 11/08/18 Unknown Urine Opiates Screen Presumptive negative 11/08/18 13:04 Urine Methadone Screen Presumptive negative 11/08/18 13:04 Ur Barbiturates Screen Presumptive negative 11/08/18 13:04 Ur Phencyclidine Scrn Presumptive negative 11/08/18 13:04 Ur Amphetamines Screen Presumptive negative 11/08/18 13:04 U Benzodiazepines Scrn Presumptive negative 11/08/18 13:04 Urine Cocaine Screen Presumptive negative 11/08/18 13:04 U Marijuana (THC) Screen Presumptive negative 11/08/18 13:04 Drugs of Abuse Note Disclamer 11/08/18 13:04 Plasma/Serum Alcohol < 0.01 % (0-0.07) 11/08/18 11:05 Hepatitis A IgM Ab Non-reactive (NonReactive) 11/08/18 11:05 Hep Bs Antigen Non-reactive (Negative) 11/08/18 11:05 Hep B Core IgM Ab Non-reactive (NonReactive) 11/08/18 11:05 Hepatitis C Antibody Non-reactive (NonReactive) 11/08/18 11:05 Blood Type O POSITIVE 11/08/18 11:13 Antibody Screen Negative 11/08/18 11:13
[2018-11-10] MEDS ORDERED: NACL 0.9% 500 ML 500 ML ONE (13:22)
--- NOTE | 2018-11-10 14:01 | Gastroenterology Consultation ---
History of Present Illness - Reason for Consult Consult date: 11/10/18 acute pancreatitis Requesting physician: RAIN DOWNING - History of Present Illness Patient is a 57 y/o male with PMH of HTN, DM, and ETOH abuse who presented to ED with c/o abdominal pain and syncope. Upon admission, he was found to have acute renal failure requiring emergent dialysis and acute pancreatitis seen on CT along with lipase >3000 to which GI has been consulted. This afternoon patient was resting in bed w/o acute distress. Noted to be somnolent and in restraints with family at bedside. History obtained via chart review and with assistance of family. When asked about abdominal pain or N/V, he was able to node his head no. No evidence of bleeding. No known hx of prior liver disease or previous pancreatitis. Hepatitis panel negative. Has a hx of heavy daily alcohol use (at least a pint of liquor) for over 20 years. Past History Past Medical History: diabetes, hypertension, hyperlipidemia Past Surgical History: cholecystectomy Social history: , alcohol abuse Family history: no significant family history (reviewed) Medications and Allergies Allergies Allergy/AdvReac Type Severity Reaction Status Date / Time No Known Allergies Allergy Verified 11/08/18 10:14 Home Medications Medication Instructions Recorded Confirmed Last Taken Type Carvedilol 25 mg PO BID 11/08/18 11/08/18 Unknown History Cetirizine HCl 10 mg PO DAILY 11/08/18 11/08/18 Unknown History Fenofibrate 160 mg PO HS 11/08/18 11/08/18 Unknown History Lovastatin 40 mg PO DAILY 11/08/18 11/08/18 Unknown History Olmesartan/Hctz 40/12.5MG 40 mg PO DAILY 11/08/18 11/08/18 Unknown History chlorproMAZINE 25 mg PO TID 11/08/18 11/08/18 Unknown History metFORMIN 1,000 mg PO BID 11/08/18 11/08/18 Unknown History traZODone 150 mg PO DAILY 11/08/18 11/08/18 Unknown History Active Meds: Active Medications Acetaminophen (Tylenol) 650 mg PO Q4H PRN PRN Reason: Pain MILD(1-3)/Fever >100.5/SEO Last Admin: 11/10/18 10:22 Dose: 650 mg Documented by: Famotidine (Pepcid) 10 mg PO BID [facility] Last Admin: 11/10/18 10:22 Dose: 10 mg Documented by: Sodium Chloride (Nacl 0.9%) 100 mls @ 999 mls/hr IV YAHAIRA PRN PRN Reason: Hypotension Levofloxacin/Dextrose (Levaquin 500mg/100ml) 500 mg in 100 mls @ 100 mls/hr IV Q48HR CHRISSY Last Admin: 11/10/18 10:22 Dose: 100 mls/hr Documented by: Potassium Chloride 20 meq/ (Dextrose) 1,010 mls @ 150 mls/hr IV DIRECT CHRISSY Last Admin: 11/10/18 12:46 Dose: 150 mls/hr Documented by: Insulin Human Regular (Humulin R) 0 units SUB-Q ACHS CHRISSY; Protocol Last Admin: 11/10/18 12:42 Dose: 4 units Documented by: Lorazepam (Ativan) 2 mg IV Q1H PRN PRN Reason: CIWA-Ar 8-15 Last Admin: 11/10/18 06:31 Dose: 2 mg Documented by: Sodium Chloride (Sodium Chloride Flush Syringe 10 Ml) 10 ml IV BID CHRISSY Last Admin: 11/10/18 10:23 Dose: 10 ml Documented by: Sodium Chloride (Sodium Chloride Flush Syringe 10 Ml) 10 ml IV PRN PRN PRN Reason: LINE FLUSH medications reviewed/updated as required Review of Systems - Review of Systems ROS unobtainable: due to mental status Exam - Constitutional Vital Signs: Temp Pulse Resp BP Pulse Ox 101.1 F H 111 H 36 H 108/70 100 11/10/18 07:37 11/10/18 12:00 11/10/18 12:00 11/10/18 12:00 11/10/18 12:00 General appearance: no acute distress, other (somnolent in restraints) - Respiratory Respiratory: bilateral: CTA (anterior) - Cardiovascular Rhythm: other (tachycardia) - Gastrointestinal General gastrointestinal: Present: soft, non-distended, normal bowel sounds - Labs CBC & Chem 7: 11/10/18 05:37 11/10/18 05:37 Lab Results: Laboratory Results - last 24 hr 11/09/18 11/09/18 11/09/18 13:29 15:04 21:37 WBC RBC Hgb Hct MCV MCH MCHC RDW Plt Count Add Manual Diff Total Counted Seg Neuts % (Manual) Band Neutrophils % Lymphocytes % (Manual) Reactive Lymphs % (Man) Monocytes % (Manual) Eosinophils % (Manual) Basophils % (Manual) Metamyelocytes % Myelocytes % Promyelocytes % Blast Cells % Nucleated RBC % Seg Neutrophils # Man Band Neutrophils # Lymphocytes # (Manual) Abs React Lymphs (Man) Monocytes # (Manual) Eosinophils # (Manual) Basophils # (Manual) Metamyelocytes # Myelocytes # Promyelocytes # Blast Cells # WBC Morphology Hypersegmented Neuts Hyposegmented Neuts Hypogranular Neuts Smudge Cells Toxic Granulation Toxic Vacuolation Dohle Bodies Pelger-Huet Anomaly Kathie Rods Platelet Estimate Clumped Platelets Plt Clumps, EDTA Large Platelets Giant Platelets Platelet Satelliting Plt Morphology Comment RBC Morphology Dimorphic RBCs Polychromasia Hypochromasia Poikilocytosis Anisocytosis Microcytosis Macrocytosis Spherocytes Pappenheimer Bodies Sickle Cells Target Cells Tear Drop Cells Ovalocytes Stomatocytes Helmet Cells Hebert-[place] Bodies [place] Rings Mateusz Cells Bite Cells Crenated Cell Elliptocytes Acanthocytes (Spur) Rouleaux Hemoglobin C Crystals Schistocytes Malaria parasites Damion Bodies Hem Pathologist Commnt Sodium 137 Potassium 4.0 Chloride 92.5 L Carbon Dioxide 30 Anion Gap 19 BUN 23 H Creatinine 2.4 H Estimated GFR 28 BUN/Creatinine Ratio 10 Glucose 248 H POC Glucose 235 H Osmolality 295 Uric Acid 1.7 L Calcium 7.7 L Lipase 11/10/18 11/10/18 05:37 05:37 WBC 7.5 RBC 2.68 L Hgb 9.4 L Hct 26.7 L MCV 100 H MCH 35 H MCHC 35 H RDW 16.2 H Plt Count 97 L Add Manual Diff Complete Total Counted 100 Seg Neuts % (Manual) 90.0 H Band Neutrophils % 7.0 Lymphocytes % (Manual) 1.0 L Reactive Lymphs % (Man) 0 Monocytes % (Manual) 2.0 Eosinophils % (Manual) 0 Basophils % (Manual) 0 Metamyelocytes % 0 Myelocytes % 0 Promyelocytes % 0 Blast Cells % 0 Nucleated RBC % Not Reportable Seg Neutrophils # Man 6.8 Band Neutrophils # 0.5 Lymphocytes # (Manual) 0.1 L Abs React Lymphs (Man) 0.0 Monocytes # (Manual) 0.2 Eosinophils # (Manual) 0.0 Basophils # (Manual) 0.0 Metamyelocytes # 0.0 Myelocytes # 0.0 Promyelocytes # 0.0 Blast Cells # 0.0 WBC Morphology Not Reportable Hypersegmented Neuts Not Reportable Hyposegmented Neuts Not Reportable Hypogranular Neuts Not Reportable Smudge Cells Not Reportable Toxic Granulation Not Reportable Toxic Vacuolation Not Reportable Dohle Bodies Not Reportable Pelger-Huet Anomaly Not Reportable Kathie Rods Not Reportable Platelet Estimate Consistent w auto Clumped Platelets Not Reportable Plt Clumps, EDTA Not Reportable Large Platelets Not Reportable Giant Platelets Not Reportable Platelet Satelliting Not Reportable Plt Morphology Comment Not Reportable RBC Morphology Not Reportable Dimorphic RBCs Not Reportable Polychromasia Not Reportable Hypochromasia 1+ Poikilocytosis Not Reportable Anisocytosis Not Reportable Microcytosis Not Reportable Macrocytosis Not Reportable Spherocytes Not Reportable Pappenheimer Bodies Not Reportable Sickle Cells Not Reportable Target Cells Not Reportable Tear Drop Cells Not Reportable Ovalocytes Not Reportable Stomatocytes 1+ Helmet Cells Not Reportable Hebert-[place] Bodies Not Reportable [place] Rings Not Reportable Mateusz Cells Not Reportable Bite Cells Not Reportable Crenated Cell Not Reportable Elliptocytes Not Reportable Acanthocytes (Spur) Not Reportable Rouleaux Not Reportable Hemoglobin C Crystals Not Reportable Schistocytes Not Reportable Malaria parasites Not Reportable Damion Bodies Not Reportable Hem Pathologist Commnt No Sodium 132 L Potassium 3.7 Chloride 90.5 L Carbon Dioxide 26 Anion Gap 19 BUN 24 H Creatinine 2.1 H Estimated GFR 33 BUN/Creatinine Ratio 11 Glucose 236 H POC Glucose Osmolality Uric Acid Calcium 7.2 L Lipase 123 H Assessment and Plan 1.acute pancreatitis 2.ETOH abuse -temp 101.1 -WBC-WNL -H/H 9.4/26.7-no active signs of bleeding -plt 97, INR 1.24 -lipase 128-trending down (3006 on admission) -LFTs- T.travis 1.30, AST 128, ALT 32, alk phos 38 -hepatitis panel negative -abd CT showed acute pancreatitis and liver with decreased heterogeneous attenuation which may represent hepatocellular disease, fatty infiltration, or cirrhosis (no lesion) -etiology-most likely 2/2 ETOH abuse (labs and imaging suggestive of possible underlying cirrhosis) -abd U/S -CRP and triglyceride level in am -Keep NPO for now -continue to trend labs and supportive care with IVF, pain control, antiemetics, empiric antibiotics, etc. -alcohol cessation-continue CIWA protocol -will follow 3.acute renal failure-s/p emergent hemodialysis; nephrology following 4.SIRS
[2018-11-11] MEDS: ATIVAN IV PRN (03:31)
[2018-11-11 05:52] LABS: Hemoglobin 9.5 gm/dl (11.8-15.2); Mean Corpuscular HGB Conc 35 % (32-34); Mean Corpuscular Volume 100 fl (84-94); Red Cell Distribution Width 15.9 % (13.2-15.2)
[2018-11-11 05:55] LABS: INR 1.13 (0.87-1.13)
[2018-11-11 05:58] LABS: Platelet Count 96 K/mm3 (140-440)
[2018-11-11 06:15] LABS: Albumin 2.8 g/dL (3.9-5); Bilirubin,Direct 0.9 mg/dL (0-0.2); C-Reactive Protein 28.1 mg/dL (0.00-1.30); Calcium 7.2 mg/dL (8.4-10.2)
[2018-11-11 07:50] LABS: Band Neutrophils # (Manual) 0.1 K/mm3; Basophils % (Manual) 0 % (0.0-1.8); Total Cells Counted 100
[2018-11-11 07:51] LABS: Anisocytosis 1+; Hypochromasia 1+; Stomatocytes 1+
[2018-11-11 07:52] LABS: Platelet Estimate Consistent w Auto
[2018-11-11] MEDS: HumuLIN R SUB-Q SCH ×4 (08:48→22:13)
[2018-11-11] MEDS: PEPCID PO SCH ×2 (09:17→22:13)
--- NOTE | 2018-11-11 10:05 | Progress Note ---
Subjective Interval history: Patient was seen today for follow-up on multiple renal related issues Has had one dialysis treatment so far Currently on dextrose sodium has gone down Patient denies having any chest pain pressure or shortness of breath Vitals labs intake output medications were reviewed Social history: Reviewed Allergies: Reviewed Family history: Reviewed Physical examination HEENT: Oral mucosa moist no pallor or icterus Neck: Supple no JVD Chest: Clear to auscultation anteriorly CVS: Regular rate and rhythm S1 and S2 heard Abdomen: Soft nontender no suprapubic masses no organomegaly appreciable Extremity: Dry skin less than 1+ peripheral edema Musculoskeletal: No joint effusion noted in knees and ankle Neurological: Alert awake Dermatology: No petechial rashes Psychiatry: No evidence of any agitation and aggression noted Assessment and plan Acute kidney injury: Resolved/she does not need any more dialysis Hyponatremia: Discontinue dextrose start sodium chloride tablet May need to change to normal saline if needed Patient does not require any further dialysis Chronic alcoholism, tremors hypertension slowly improving Need psychiatry GI evaluation and follow-up We'll continue to follow and make recommendation from renal standpoint Objective - Vital Signs Vital signs: Vital Signs - 12hr 11/10/18 11/10/18 11/11/18 22:10 23:00 00:00 Temperature 98.5 F Pulse Rate 108 H 97 H Respiratory 34 H 13 Rate Blood Pressure 127/81 127/81 O2 Sat by Pulse 98 100 100 Oximetry 11/11/18 11/11/18 11/11/18 01:00 02:00 03:00 Temperature Pulse Rate 104 H 109 H Respiratory 31 H 22 Rate Blood Pressure 115/65 107/71 111/81 O2 Sat by Pulse 100 81 L Oximetry 11/11/18 11/11/18 11/11/18 04:00 05:00 06:00 Temperature 98.7 F Pulse Rate 107 H 100 H 108 H Respiratory 33 H 27 H 21 Rate Blood Pressure 107/60 104/71 109/71 O2 Sat by Pulse 100 100 100 Oximetry 11/11/18 11/11/18 07:00 08:00 Temperature 98.2 F Pulse Rate 109 H 105 H Respiratory 12 26 H Rate Blood Pressure 126/83 127/76 O2 Sat by Pulse 100 100 Oximetry - Lab 11/11/18 05:29 11/11/18 05:29 Most recent lab results Calcium 7.2 mg/dL (8.4-10.2) L 11/11/18 05:29 Magnesium 1.60 mg/dL (1.7-2.3) L 11/08/18 14:50 Urine Creatinine 84.6 mg/dL (0.1-20.0) H 11/08/18 Unknown Urine Sodium 66 mmol/L 11/08/18 Unknown Urine Total Protein 183 mg/dL (5-11.8) H 11/08/18 Unknown Medications & Allergies - Medications Allergies/Adverse Reactions: Allergies No Known Allergies Allergy (Verified 11/08/18 10:14) Home Medications: Home Medications Medication Instructions Recorded Confirmed Last Taken Type Carvedilol 25 mg PO BID 11/08/18 11/08/18 Unknown History Cetirizine HCl 10 mg PO DAILY 11/08/18 11/08/18 Unknown History Fenofibrate 160 mg PO HS 11/08/18 11/08/18 Unknown History Lovastatin 40 mg PO DAILY 11/08/18 11/08/18 Unknown History Olmesartan/Hctz 40/12.5MG 40 mg PO DAILY 11/08/18 11/08/18 Unknown History chlorproMAZINE 25 mg PO TID 11/08/18 11/08/18 Unknown History metFORMIN 1,000 mg PO BID 11/08/18 11/08/18 Unknown History traZODone 150 mg PO DAILY 11/08/18 11/08/18 Unknown History Active Medications: Generic Name Dose Route Start Last Admin Trade Name Freq PRN Reason Stop Dose Admin Acetaminophen 650 mg 11/08/18 23:43 11/10/18 10:22 Tylenol PO 650 mg Q4H PRN Administration Pain MILD(1-3)/Fever >100.5/SEO Famotidine 10 mg 11/08/18 14:00 11/11/18 09:17 Pepcid PO 10 mg BID CHRISSY Administration Sodium Chloride 100 mls @ 999 mls/hr 11/08/18 13:08 Nacl 0.9% IV YAHAIRA PRN Hypotension Levofloxacin/Dextrose 500 mg in 100 mls @ 100 mls/hr 11/10/18 10:00 11/10/18 10:22 Levaquin 500mg/100ml IV 100 mls/hr Q48HR CHRISSY Administration Insulin Human Regular 0 units 11/09/18 07:30 11/11/18 08:48 Humulin R SUB-Q Not Given ACHS CHRISSY Protocol Lorazepam 2 mg 11/08/18 13:43 11/11/18 03:31 Ativan IV 2 mg Q1H PRN Administration CIWA-Ar 8-15 Sodium Chloride 10 ml 11/08/18 22:00 11/10/18 21:32 Sodium Chloride Flush Syringe 10 Ml IV 10 ml BID CHRISSY Administration Sodium Chloride 10 ml 11/08/18 13:33 Sodium Chloride Flush Syringe 10 Ml IV PRN PRN LINE FLUSH
--- NOTE | 2018-11-11 14:52 | Ultrasound Report ---
ULTRASOUND ABDOMEN COMPLETE: TECHNIQUE: Transabdominal ultrasound with color Doppler interrogation. HISTORY: Pancreatitis, cirrhosis. COMPARISON: CT abdomen pelvis dated 11/08/18. FINDINGS: LIVER: There is moderate to severe diffuse fatty infiltration throughout the liver. No evidence for surface nodularity to suggest cirrhosis. No obvious liver mass. BILIARY SYSTEM: A small amount of sludge is identified in the gallbladder. No evidence for wall thickening or abnormal dilatation. The CBD is mildly dilated measuring 7 mm although no obvious choledocholithiasis. PANCREAS: Obscured by bowel gas. SPLEEN: Normal. KIDNEYS: Normal. AORTA/IVC: Normal. ASCITES: Trace ascites. IMPRESSION: Diffuse fatty infiltration of the liver. Small amount of sludge in the gallbladder. Mildly dilated common bile duct measuring 7 mm. The pancreas is obscured. Trace ascites.
--- NOTE | 2018-11-11 15:25 | Gastroenterology Progress Note ---
Assessment and Plan 1.acute pancreatitis 2.ETOH abuse -afebrile -WBC-WNL -H/H 9.5/27.0 (stable) -plt 96, INR 1.13-trended down -lipase 66-trended down (3006 on admission) -LFTs- T.travis 1.40, AST 88, ALT 60, alk phos 39 -hepatitis panel negative -triglyceride level 489 -CRP 28.10 -abd CT showed acute pancreatitis and liver with decreased heterogeneous attenua tion which may represent hepatocellular disease, fatty infiltration, or cirrhosis (no lesion) -abd U/S showed diffuse fatty infiltration of the liver but no evidence of surface nodularity or liver mass (sludge in gallbladder and mild dilation of CBD) -etiology-most likely 2/2 ETOH abuse (possible underlying cirrhosis cannot be excluded) -okay for clear liquids as tolerated -continue to trend labs and supportive care with IVF, pain control, antiemetics, empiric antibiotics, etc. -alcohol cessation-continue [facility] protocol -will follow 3.acute renal failure-s/p emergent hemodialysis; nephrology following 4.SIRS Subjective Date of service: 11/11/18 Principal diagnosis: pancreatitis Interval history: No acute distress. Patient remains somnolent in restraints. No vomiting or signs of bleeding. Objective - Constitutional Vitals: Temp Pulse Resp BP Pulse Ox 97.2 F L 116 H 31 H 116/76 98 11/11/18 12:00 11/11/18 10:00 11/11/18 10:00 11/11/18 13:00 11/11/18 13:00 General appearance: no acute distress, other (somnolent in restraints) - Respiratory Respiratory: bilateral: CTA (anterior) - Cardiovascular Rhythm: other (tachycardia) - Gastrointestinal General gastrointestinal: Present: soft, non-tender, non-distended, normal bowel sounds - Labs CBC & Chem 7: 11/11/18 05:29 11/11/18 05:29 Labs: Laboratory Results - last 24 hr 11/11/18 11/11/18 11/11/18 05:29 05:29 05:29 WBC 7.2 RBC 2.70 L Hgb 9.5 L Hct 27.0 L MCV 100 H MCH 35 H MCHC 35 H RDW 15.9 H Plt Count 96 L Dundy % (Auto) Manifest Clerk Add Manual Diff Complete Total Counted 100 Seg Neuts % (Manual) 66.0 Band Neutrophils % 1.0 Lymphocytes % (Manual) 14.0 Reactive Lymphs % (Man) 0 Monocytes % (Manual) 17.0 H Eosinophils % (Manual) 2.0 Basophils % (Manual) 0 Metamyelocytes % 0 Myelocytes % 0 Promyelocytes % 0 Blast Cells % 0 Nucleated RBC % Not Reportable Seg Neutrophils # Man 4.8 Band Neutrophils # 0.1 Lymphocytes # (Manual) 1.0 L Abs React Lymphs (Man) 0.0 Monocytes # (Manual) 1.2 H Eosinophils # (Manual) 0.1 Basophils # (Manual) 0.0 Metamyelocytes # 0.0 Myelocytes # 0.0 Promyelocytes # 0.0 Blast Cells # 0.0 WBC Morphology Not Reportable Hypersegmented Neuts Not Reportable Hyposegmented Neuts Not Reportable Hypogranular Neuts Not Reportable Smudge Cells Not Reportable Toxic Granulation Not Reportable Toxic Vacuolation Not Reportable Dohle Bodies Not Reportable Pelger-Huet Anomaly Not Reportable Kathie Rods Not Reportable Platelet Estimate Consistent w auto Clumped Platelets Not Reportable Plt Clumps, EDTA Not Reportable Large Platelets Not Reportable Giant Platelets Not Reportable Platelet Satelliting Not Reportable Plt Morphology Comment Not Reportable RBC Morphology Not Reportable Dimorphic RBCs Not Reportable Polychromasia Not Reportable Hypochromasia 1+ Poikilocytosis Not Reportable Anisocytosis 1+ Microcytosis Not Reportable Macrocytosis Not Reportable Spherocytes Not Reportable Pappenheimer Bodies Not Reportable Sickle Cells Not Reportable Target Cells Not Reportable Tear Drop Cells Not Reportable Ovalocytes Not Reportable Stomatocytes 1+ Helmet Cells Not Reportable Hebert-[place] Bodies Not Reportable [place] Rings Not Reportable [place] Cells Not Reportable Bite Cells Not Reportable Crenated Cell Not Reportable Elliptocytes Not Reportable Acanthocytes (Spur) Not Reportable Rouleaux Not Reportable Hemoglobin C Crystals Not Reportable Schistocytes Not Reportable Malaria parasites Not Reportable Damion Bodies Not Reportable Hem Pathologist Commnt No PT 15.2 H INR 1.13 Sodium 128 L Potassium 3.9 Chloride 91.0 L Carbon Dioxide 19 L D Anion Gap 22 BUN 18 Creatinine 1.4 Estimated GFR 53 BUN/Creatinine Ratio 13 Glucose 173 H Calcium 7.2 L Total Bilirubin 1.40 H Direct Bilirubin 0.9 H Indirect Bilirubin 0.5 AST 88 H ALT 60 H Alkaline Phosphatase 39 C-Reactive Protein 28.10 H Total Protein 6.1 L D Albumin 2.8 L Albumin/Globulin Ratio 0.8 Triglycerides 489 H Lipase 66 H
[2018-11-11] MEDS: LEVAQUIN 500MG/100ML 500 MG/100 ML BAG IV SCH (15:34)
[2018-11-11] MEDS: SODIUM CHLORIDE FLUSH SYRINGE 10 ML IV SCH ×2 (15:44→22:14)
--- NOTE | 2018-11-11 17:02 | Progress Note ---
Assessment and Plan Assessment and plan: 57m who pw abdominal pain. The patient admits to very heavy alcohol abuse. Acute pancreatitis. Continue IV fluid hydration. Follow serial lipase. GI consultation. For US Acute renal failure. Nephrology following. Patient has received urgent hemodialysis 1. IV fluids, further care per nephrology Hyperkalemia. Etiology secondary to above. Resolved with hemodialysis. Continue to monitor. SIRS with acute organ dysfunction. Blood cultures are negative. No evidence of infection EtOH abuse/withdrawal. Continue CIWA protocol. History Interval history: Review of systems Constitutional: No fevers, no malaise, no joint pains CVS: No chest pain, no orthopnea, no dyspnea on exertion, no pedal edema GI: Continues to complain of abdominal pain, no diarrhea, no vomiting, no constipation Respiratory: No shortness of breath, no wheezing, no coughing Hospitalist Physical - Physical exam Narrative exam: General.: Appears well, no distress, nontoxic HEENT: Moist mucous membranes, extraocular muscles intact, no lymphadenopathy Neck: supple Cardiac: S1-S2 heard Lungs: clear to auscultation bilaterally Abdomen: soft , tender Skin: no rash or lesions Neurologic: no gross focal deficits Psych: calm, and cooperative - Constitutional Vitals: Temp Pulse Resp BP Pulse Ox 100.4 F H 116 H 31 H 116/76 98 11/11/18 16:00 11/11/18 10:00 11/11/18 10:00 11/11/18 13:00 11/11/18 13:00 General appearance: Present: no acute distress, other (occasional tremors) Results - Labs CBC & Chem 7: 11/12/18 04:57 11/13/18 05:33 Labs: Laboratory Last Values WBC 7.2 K/mm3 (4.5-11.0) 11/11/18 05:29 RBC 2.70 M/mm3 (3.65-5.03) L 11/11/18 05:29 Hgb 9.5 gm/dl (11.8-15.2) L 11/11/18 05:29 Hct 27.0 % (35.5-45.6) L 11/11/18 05:29 MCV 100 fl (84-94) H 11/11/18 05:29 MCH 35 pg (28-32) H 11/11/18 05:29 MCHC 35 % (32-34) H 11/11/18 05:29 RDW 15.9 % (13.2-15.2) H 11/11/18 05:29 Plt Count 96 K/mm3 (140-440) L 11/11/18 05:29 [place] % (Auto) [employer] 11/11/18 05:29 Add Manual Diff Complete 11/11/18 05:29 Total Counted 100 11/11/18 05:29 Seg Neuts % (Manual) 66.0 % (40.0-70.0) 11/11/18 05:29 Band Neutrophils % 1.0 % 11/11/18 05:29 Lymphocytes % (Manual) 14.0 % (13.4-35.0) 11/11/18 05:29 Reactive Lymphs % (Man) 0 % 11/11/18 05:29 Monocytes % (Manual) 17.0 % (0.0-7.3) H 11/11/18 05:29 Eosinophils % (Manual) 2.0 % (0.0-4.3) 11/11/18 05:29 Basophils % (Manual) 0 % (0.0-1.8) 11/11/18 05:29 Metamyelocytes % 0 % 11/11/18 05:29 Myelocytes % 0 % 11/11/18 05:29 Promyelocytes % 0 % 11/11/18 05:29 Blast Cells % 0 % 11/11/18 05:29 Nucleated RBC % Not Reportable 11/11/18 05:29 Seg Neutrophils # Man 4.8 K/mm3 (1.8-7.7) 11/11/18 05:29 Band Neutrophils # 0.1 K/mm3 11/11/18 05:29 Lymphocytes # (Manual) 1.0 K/mm3 (1.2-5.4) L 11/11/18 05:29 Abs React Lymphs (Man) 0.0 K/mm3 11/11/18 05:29 Monocytes # (Manual) 1.2 K/mm3 (0.0-0.8) H 11/11/18 05:29 Eosinophils # (Manual) 0.1 K/mm3 (0.0-0.4) 11/11/18 05:29 Basophils # (Manual) 0.0 K/mm3 (0.0-0.1) 11/11/18 05:29 Metamyelocytes # 0.0 K/mm3 11/11/18 05:29 Myelocytes # 0.0 K/mm3 11/11/18 05:29 Promyelocytes # 0.0 K/mm3 11/11/18 05:29 Blast Cells # 0.0 K/mm3 11/11/18 05:29 WBC Morphology Not Reportable 11/11/18 05:29 Hypersegmented Neuts Not Reportable 11/11/18 05:29 Hyposegmented Neuts Not Reportable 11/11/18 05:29 Hypogranular Neuts Not Reportable 11/11/18 05:29 Smudge Cells Not Reportable 11/11/18 05:29 Toxic Granulation Not Reportable 11/11/18 05:29 Toxic Vacuolation Not Reportable 11/11/18 05:29 Dohle Bodies Not Reportable 11/11/18 05:29 Pelger-Huet Anomaly Not Reportable 11/11/18 05:29 Kathie Rods Not Reportable 11/11/18 05:29 Platelet Estimate Consistent w auto 11/11/18 05:29 Clumped Platelets Not Reportable 11/11/18 05:29 Plt Clumps, EDTA Not Reportable 11/11/18 05:29 Large Platelets Not Reportable 11/11/18 05:29 Giant Platelets Not Reportable 11/11/18 05:29 Platelet Satelliting Not Reportable 11/11/18 05:29 Plt Morphology Comment Not Reportable 11/11/18 05:29 RBC Morphology Not Reportable 11/11/18 05:29 Dimorphic RBCs Not Reportable 11/11/18 05:29 Polychromasia Not Reportable 11/11/18 05:29 Hypochromasia 1+ 11/11/18 05:29 Poikilocytosis Not Reportable 11/11/18 05:29 Anisocytosis 1+ 11/11/18 05:29 Microcytosis Not Reportable 11/11/18 05:29 Macrocytosis Not Reportable 11/11/18 05:29 Spherocytes Not Reportable 11/11/18 05:29 Pappenheimer Bodies Not Reportable 11/11/18 05:29 Sickle Cells Not Reportable 11/11/18 05:29 Target Cells Not Reportable 11/11/18 05:29 Tear Drop Cells Not Reportable 11/11/18 05:29 Ovalocytes Not Reportable 11/11/18 05:29 Stomatocytes 1+ 11/11/18 05:29 Helmet Cells Not Reportable 11/11/18 05:29 [place] Bodies Not Reportable 11/11/18 05:29 [place] Rings Not Reportable 11/11/18 05:29 [place] Cells Not Reportable 11/11/18 05:29 Bite Cells Not Reportable 11/11/18 05:29 Crenated Cell Not Reportable 11/11/18 05:29 Elliptocytes Not Reportable 11/11/18 05:29 Acanthocytes (Spur) Not Reportable 11/11/18 05:29 Rouleaux Not Reportable 11/11/18 05:29 Hemoglobin C Crystals Not Reportable 11/11/18 05:29 Schistocytes Not Reportable 11/11/18 05:29 Malaria parasites Not Reportable 11/11/18 05:29 Damion Bodies Not Reportable 11/11/18 05:29 Hem Pathologist Commnt No 11/11/18 05:29 PT 15.2 Sec. (12.2-14.9) H 11/11/18 05:29 INR 1.13 (0.87-1.13) 11/11/18 05:29 APTT 33.9 Sec. (24.2-36.6) 11/08/18 11:05 Sodium 128 mmol/L (137-145) L 11/11/18 05:29 Potassium 3.9 mmol/L (3.6-5.0) 11/11/18 05:29 Chloride 91.0 mmol/L (98-107) L 11/11/18 05:29 Carbon Dioxide 19 mmol/L (22-30) L D 11/11/18 05:29 Anion Gap 22 mmol/L 11/11/18 05:29 BUN 18 mg/dL (9-20) 11/11/18 05:29 Creatinine 1.4 mg/dL (0.8-1.5) 11/11/18 05:29 Estimated GFR 53 ml/min 11/11/18 05:29 BUN/Creatinine Ratio 13 % 11/11/18 05:29 Glucose 173 mg/dL (75-100) H 11/11/18 05:29 POC Glucose 235 (70-105) H 11/09/18 21:37 Osmolality 295 Mosm/kg 11/09/18 13:29 Uric Acid 1.7 mg/dL (3.5-7.6) L 11/09/18 15:04 Calcium 7.2 mg/dL (8.4-10.2) L 11/11/18 05:29 Magnesium 1.60 mg/dL (1.7-2.3) L 11/08/18 14:50 Total Bilirubin 1.40 mg/dL (0.1-1.2) H 11/11/18 05:29 Direct Bilirubin 0.9 mg/dL (0-0.2) H 11/11/18 05:29 Indirect Bilirubin 0.5 mg/dL 11/11/18 05:29 AST 88 units/L (5-40) H 11/11/18 05:29 ALT 60 units/L (7-56) H 11/11/18 05:29 Alkaline Phosphatase 39 units/L (35-129) 11/11/18 05:29 Ammonia < 10.0 umol/L (25-60) L 11/08/18 15:26 Total Creatine Kinase 159 units/L (55-170) 11/08/18 11:05 CK-MB (CK-2) 1.1 ng/mL (0.0-4.0) 11/08/18 11:05 CK-MB (CK-2) Rel Index 0.6 (0-4) 11/08/18 11:05 Troponin T < 0.010 ng/mL (0.00-0.029) 11/08/18 11:05 C-Reactive Protein 28.10 mg/dL (0.00-1.30) H 11/11/18 05:29 Total Protein 6.1 g/dL (6.3-8.2) L D 11/11/18 05:29 Albumin 2.8 g/dL (3.9-5) L 11/11/18 05:29 Albumin/Globulin Ratio 0.8 % 11/11/18 05:29 Triglycerides 489 mg/dL (2-149) H 11/11/18 05:29 Lipase 66 units/L (13-60) H 11/11/18 05:29 TSH 9.780 mlU/mL (0.270-4.200) H 11/08/18 11:05 Free T4 1.21 ng/dL (0.76-1.46) 11/08/18 11:05 Urine Color Yellow (Yellow) 11/08/18 13:04 Urine Turbidity Slightly-cloudy (Clear) 11/08/18 13:04 Urine pH 5.0 (5.0-7.0) 11/08/18 13:04 Ur Specific [place] 1.022 (1.003-1.030) 11/08/18 13:04 Urine Protein 100 mg/dl mg/dL (Negative) 11/08/18 13:04 Urine Glucose (UA) >=500 mg/dL (Negative) 11/08/18 13:04 Urine Ketones Neg mg/dL (Negative) 11/08/18 13:04 Urine Blood Mod (Negative) 11/08/18 13:04 Urine Nitrite Neg (Negative) 11/08/18 13:04 Urine Bilirubin Neg (Negative) 11/08/18 13:04 Urine Urobilinogen < 2.0 mg/dL (<2.0) 11/08/18 13:04 Ur Leukocyte Esterase Neg (Negative) 11/08/18 13:04 Urine WBC (Auto) 2.0 /HPF (0.0-6.0) 11/08/18 13:04 Urine RBC (Auto) 1.0 /HPF (0.0-6.0) 11/08/18 13:04 U Epithel Cells (Auto) 1.0 /HPF (0-13.0) 11/08/18 13:04 Urine Mucus Few /HPF 11/08/18 13:04 Urine Creatinine 84.6 mg/dL (0.1-20.0) H 11/08/18 Unknown Urine Sodium 66 mmol/L 11/08/18 Unknown Urine Total Protein 183 mg/dL (5-11.8) H 11/08/18 Unknown Urine Opiates Screen Presumptive negative 11/08/18 13:04 Urine Methadone Screen Presumptive negative 11/08/18 13:04 Ur Barbiturates Screen Presumptive negative 11/08/18 13:04 Ur Phencyclidine Scrn Presumptive negative 11/08/18 13:04 Ur Amphetamines Screen Presumptive negative 11/08/18 13:04 U Benzodiazepines Scrn Presumptive negative 11/08/18 13:04 Urine Cocaine Screen Presumptive negative 11/08/18 13:04 U Marijuana (THC) Screen Presumptive negative 11/08/18 13:04 Drugs of Abuse Note Disclamer 11/08/18 13:04 Plasma/Serum Alcohol < 0.01 % (0-0.07) 11/08/18 11:05 Hepatitis A IgM Ab Non-reactive (NonReactive) 11/08/18 11:05 Hep Bs Antigen Non-reactive (Negative) 11/08/18 11:05 Hep B Core IgM Ab Non-reactive (NonReactive) 11/08/18 11:05 Hepatitis C Antibody Non-reactive (NonReactive) 11/08/18 11:05 Blood Type O POSITIVE 11/08/18 11:13 Antibody Screen Negative 11/08/18 11:13
[2018-11-11] MEDS: SODIUM CHLORIDE PO SCH (22:13)
[2018-11-12] MEDS: ATIVAN IV PRN (01:08)
[2018-11-12 05:47] LABS: Hematocrit 28.8 % (35.5-45.6); Mean Corpuscular HGB Conc 35 % (32-34); Mean Corpuscular Volume 102 fl (84-94); Platelet Count 150 K/mm3 (140-440); Red Blood Count 2.84 M/mm3 (3.65-5.03); Red Cell Distribution Width 16.3 % (13.2-15.2)
[2018-11-12 06:17] LABS: Alanine Aminotransferase 40 units/L (7-56); Albumin 3.2 g/dL (3.9-5); BUN/Creatinine Ratio 16; Blood Urea Nitrogen 19 mg/dL (9-20); Calcium 8.1 mg/dL (8.4-10.2); Hemolysis Index 2
[2018-11-12 06:30] LABS: Band Neutrophils # (Manual) 0.7 K/mm3; Target Cells 1+; Total Cells Counted 100
[2018-11-12 06:31] LABS: Platelet Estimate Consistent w Auto; Stomatocytes Few
[2018-11-12] MEDS: LEVAQUIN 500MG/100ML 500 MG/100 ML BAG IV SCH (09:29)
[2018-11-12] MEDS: HumuLIN R SUB-Q SCH ×4 (09:29→22:53)
[2018-11-12] MEDS: PEPCID PO SCH ×2 (09:30→21:15)
[2018-11-12] MEDS: SODIUM CHLORIDE PO SCH ×2 (09:32→21:14)
[2018-11-12] MEDS: SODIUM CHLORIDE FLUSH SYRINGE 10 ML IV SCH ×2 (09:33→21:15)
--- NOTE | 2018-11-12 10:00 | Progress Note ---
Assessment and Plan Assessment and plan: 57m who pw abdominal pain. The patient admits to very heavy alcohol abuse. Acute pancreatitis. Continue IV fluid hydration. Follow serial lipase. GI consultation. For US Acute renal failure/hyponatremia. Nephrology following. Patient has received urgent hemodialysis 1. IV fluids, further care per nephrology Hyperkalemia. Etiology secondary to above. Resolved with hemodialysis. Continue to monitor. SIRS with acute organ dysfunction. Blood cultures are negative. No evidence of infection EtOH abuse/withdrawal. Continue CIWA protocol. Patient was counseled on alcohol cessation greater than 15 minutes was spent History Interval history: Review of systems Constitutional: No fevers, no malaise, no joint pains CVS: No chest pain, no orthopnea, no dyspnea on exertion, no pedal edema GI: Continues to complain of abdominal pain, no diarrhea, no vomiting, no constipation Respiratory: No shortness of breath, no wheezing, no coughing Hospitalist Physical - Physical exam Narrative exam: General.: Appears well, no distress, nontoxic HEENT: Moist mucous membranes, extraocular muscles intact, no lymphadenopathy Neck: supple Cardiac: S1-S2 heard Lungs: clear to auscultation bilaterally Abdomen: soft , tender Skin: no rash or lesions Neurologic: no gross focal deficits Psych: calm, and cooperative - Constitutional Vitals: Temp Pulse Resp BP Pulse Ox 99.3 F 108 H 37 H 114/75 100 11/12/18 08:00 11/12/18 09:00 11/12/18 09:00 11/12/18 09:00 11/12/18 09:00 General appearance: Present: no acute distress, other (occasional tremors) Results - Labs CBC & Chem 7: 11/12/18 04:57 11/13/18 05:33 Labs: Laboratory Last Values WBC 7.4 K/mm3 (4.5-11.0) 11/12/18 04:57 RBC 2.84 M/mm3 (3.65-5.03) L 11/12/18 04:57 Hgb 10.0 gm/dl (11.8-15.2) L 11/12/18 04:57 Hct 28.8 % (35.5-45.6) L 11/12/18 04:57 MCV 102 fl (84-94) H 11/12/18 04:57 MCH 35 pg (28-32) H 11/12/18 04:57 MCHC 35 % (32-34) H 11/12/18 04:57 RDW 16.3 % (13.2-15.2) H 11/12/18 04:57 Plt Count 150 K/mm3 (140-440) 11/12/18 04:57 [place] % (Auto) [place] 11/12/18 04:57 Add Manual Diff Complete 11/12/18 04:57 Total Counted 100 11/12/18 04:57 Seg Neuts % (Manual) 59.0 % (40.0-70.0) 11/12/18 04:57 Band Neutrophils % 10.0 % 11/12/18 04:57 Lymphocytes % (Manual) 10.0 % (13.4-35.0) L 11/12/18 04:57 Reactive Lymphs % (Man) 0 % 11/12/18 04:57 Monocytes % (Manual) 17.0 % (0.0-7.3) H 11/12/18 04:57 Eosinophils % (Manual) 1.0 % (0.0-4.3) 11/12/18 04:57 Basophils % (Manual) 1.0 % (0.0-1.8) 11/12/18 04:57 Metamyelocytes % 2.0 % 11/12/18 04:57 Myelocytes % 0 % 11/12/18 04:57 Promyelocytes % 0 % 11/12/18 04:57 Blast Cells % 0 % 11/12/18 04:57 Nucleated RBC % Not Reportable 11/12/18 04:57 Seg Neutrophils # Man 4.4 K/mm3 (1.8-7.7) 11/12/18 04:57 Band Neutrophils # 0.7 K/mm3 11/12/18 04:57 Lymphocytes # (Manual) 0.7 K/mm3 (1.2-5.4) L 11/12/18 04:57 Abs React Lymphs (Man) 0.0 K/mm3 11/12/18 04:57 Monocytes # (Manual) 1.3 K/mm3 (0.0-0.8) H 11/12/18 04:57 Eosinophils # (Manual) 0.1 K/mm3 (0.0-0.4) 11/12/18 04:57 Basophils # (Manual) 0.1 K/mm3 (0.0-0.1) 11/12/18 04:57 Metamyelocytes # 0.1 K/mm3 11/12/18 04:57 Myelocytes # 0.0 K/mm3 11/12/18 04:57 Promyelocytes # 0.0 K/mm3 11/12/18 04:57 Blast Cells # 0.0 K/mm3 11/12/18 04:57 WBC Morphology Not Reportable 11/12/18 04:57 Hypersegmented Neuts Not Reportable 11/12/18 04:57 Hyposegmented Neuts Not Reportable 11/12/18 04:57 Hypogranular Neuts Not Reportable 11/12/18 04:57 Smudge Cells Not Reportable 11/12/18 04:57 Toxic Granulation Not Reportable 11/12/18 04:57 Toxic Vacuolation Not Reportable 11/12/18 04:57 Dohle Bodies Not Reportable 11/12/18 04:57 Pelger-Huet Anomaly Not Reportable 11/12/18 04:57 Kathie Rods Not Reportable 11/12/18 04:57 Platelet Estimate Consistent w auto 11/12/18 04:57 Clumped Platelets Not Reportable 11/12/18 04:57 Plt Clumps, EDTA Not Reportable 11/12/18 04:57 Large Platelets Not Reportable 11/12/18 04:57 Giant Platelets Not Reportable 11/12/18 04:57 Platelet Satelliting Not Reportable 11/12/18 04:57 Plt Morphology Comment Not Reportable 11/12/18 04:57 RBC Morphology Not Reportable 11/12/18 04:57 Dimorphic RBCs Not Reportable 11/12/18 04:57 Polychromasia Not Reportable 11/12/18 04:57 Hypochromasia Not Reportable 11/12/18 04:57 Poikilocytosis Not Reportable 11/12/18 04:57 Anisocytosis Not Reportable 11/12/18 04:57 Microcytosis Not Reportable 11/12/18 04:57 Macrocytosis Not Reportable 11/12/18 04:57 Spherocytes Not Reportable 11/12/18 04:57 Pappenheimer Bodies Not Reportable 11/12/18 04:57 Sickle Cells Not Reportable 11/12/18 04:57 Target Cells 1+ 11/12/18 04:57 Tear Drop Cells Not Reportable 11/12/18 04:57 Ovalocytes Not Reportable 11/12/18 04:57 Stomatocytes Few 11/12/18 04:57 Helmet Cells Not Reportable 11/12/18 04:57 [place] Bodies Not Reportable 11/12/18 04:57 [place] Rings Not Reportable 11/12/18 04:57 [place] Cells Not Reportable 11/12/18 04:57 Bite Cells Not Reportable 11/12/18 04:57 Crenated Cell Not Reportable 11/12/18 04:57 Elliptocytes Not Reportable 11/12/18 04:57 Acanthocytes (Spur) Not Reportable 11/12/18 04:57 Rouleaux Not Reportable 11/12/18 04:57 Hemoglobin C Crystals Not Reportable 11/12/18 04:57 Schistocytes Not Reportable 11/12/18 04:57 Malaria parasites Not Reportable 11/12/18 04:57 [place] Bodies Not Reportable 11/12/18 04:57 Hem Pathologist Commnt No 11/12/18 04:57 PT 15.2 Sec. (12.2-14.9) H 11/11/18 05:29 INR 1.13 (0.87-1.13) 11/11/18 05:29 APTT 33.9 Sec. (24.2-36.6) 11/08/18 11:05 Sodium 133 mmol/L (137-145) L 11/12/18 04:57 Potassium 4.0 mmol/L (3.6-5.0) 11/12/18 04:57 Chloride 95.6 mmol/L (98-107) L 11/12/18 04:57 Carbon Dioxide 18 mmol/L (22-30) L 11/12/18 04:57 Anion Gap 23 mmol/L 11/12/18 04:57 BUN 19 mg/dL (9-20) 11/12/18 04:57 Creatinine 1.2 mg/dL (0.8-1.5) 11/12/18 04:57 Estimated GFR > 60 ml/min 11/12/18 04:57 BUN/Creatinine Ratio 16 % 11/12/18 04:57 Glucose 137 mg/dL (75-100) H 11/12/18 04:57 POC Glucose 235 (70-105) H 11/09/18 21:37 Osmolality 295 Mosm/kg 11/09/18 13:29 Uric Acid 1.7 mg/dL (3.5-7.6) L 11/09/18 15:04 Calcium 8.1 mg/dL (8.4-10.2) L 11/12/18 04:57 Magnesium 1.60 mg/dL (1.7-2.3) L 11/08/18 14:50 Total Bilirubin 1.60 mg/dL (0.1-1.2) H 11/12/18 04:57 Direct Bilirubin 0.9 mg/dL (0-0.2) H 11/11/18 05:29 Indirect Bilirubin 0.5 mg/dL 11/11/18 05:29 AST 43 units/L (5-40) H 11/12/18 04:57 ALT 40 units/L (7-56) 11/12/18 04:57 Alkaline Phosphatase 43 units/L (35-129) 11/12/18 04:57 Ammonia < 10.0 umol/L (25-60) L 11/08/18 15:26 Total Creatine Kinase 159 units/L (55-170) 11/08/18 11:05 CK-MB (CK-2) 1.1 ng/mL (0.0-4.0) 11/08/18 11:05 CK-MB (CK-2) Rel Index 0.6 (0-4) 11/08/18 11:05 Troponin T < 0.010 ng/mL (0.00-0.029) 11/08/18 11:05 C-Reactive Protein 29.00 mg/dL (0.00-1.30) H 11/12/18 04:57 Total Protein 7.1 g/dL (6.3-8.2) 11/12/18 04:57 Albumin 3.2 g/dL (3.9-5) L 11/12/18 04:57 Albumin/Globulin Ratio 0.8 % 11/12/18 04:57 Triglycerides 489 mg/dL (2-149) H 11/11/18 05:29 Lipase 71 units/L (13-60) H 11/12/18 04:57 TSH 9.780 mlU/mL (0.270-4.200) H 11/08/18 11:05 Free T4 1.21 ng/dL (0.76-1.46) 11/08/18 11:05 Urine Color Yellow (Yellow) 11/08/18 13:04 Urine Turbidity Slightly-cloudy (Clear) 11/08/18 13:04 Urine pH 5.0 (5.0-7.0) 11/08/18 13:04 Ur Specific [place] 1.022 (1.003-1.030) 11/08/18 13:04 Urine Protein 100 mg/dl mg/dL (Negative) 11/08/18 13:04 Urine Glucose (UA) >=500 mg/dL (Negative) 11/08/18 13:04 Urine Ketones Neg mg/dL (Negative) 11/08/18 13:04 Urine Blood Mod (Negative) 11/08/18 13:04 Urine Nitrite Neg (Negative) 11/08/18 13:04 Urine Bilirubin Neg (Negative) 11/08/18 13:04 Urine Urobilinogen < 2.0 mg/dL (<2.0) 11/08/18 13:04 Ur Leukocyte Esterase Neg (Negative) 11/08/18 13:04 Urine WBC (Auto) 2.0 /HPF (0.0-6.0) 11/08/18 13:04 Urine RBC (Auto) 1.0 /HPF (0.0-6.0) 11/08/18 13:04 U Epithel Cells (Auto) 1.0 /HPF (0-13.0) 11/08/18 13:04 Urine Mucus Few /HPF 11/08/18 13:04 Urine Creatinine 84.6 mg/dL (0.1-20.0) H 11/08/18 Unknown Urine Sodium 66 mmol/L 11/08/18 Unknown Urine Total Protein 183 mg/dL (5-11.8) H 11/08/18 Unknown Urine Opiates Screen Presumptive negative 11/08/18 13:04 Urine Methadone Screen Presumptive negative 11/08/18 13:04 Ur Barbiturates Screen Presumptive negative 11/08/18 13:04 Ur Phencyclidine Scrn Presumptive negative 11/08/18 13:04 Ur Amphetamines Screen Presumptive negative 11/08/18 13:04 U Benzodiazepines Scrn Presumptive negative 11/08/18 13:04 Urine Cocaine Screen Presumptive negative 11/08/18 13:04 U Marijuana (THC) Screen Presumptive negative 11/08/18 13:04 Drugs of Abuse Note Disclamer 11/08/18 13:04 Plasma/Serum Alcohol < 0.01 % (0-0.07) 11/08/18 11:05 Hepatitis A IgM Ab Non-reactive (NonReactive) 11/08/18 11:05 Hep Bs Antigen Non-reactive (Negative) 11/08/18 11:05 Hep B Core IgM Ab Non-reactive (NonReactive) 11/08/18 11:05 Hepatitis C Antibody Non-reactive (NonReactive) 11/08/18 11:05 Blood Type O POSITIVE 11/08/18 11:13 Antibody Screen Negative 11/08/18 11:13
--- NOTE | 2018-11-12 10:01 | Progress Note ---
Subjective Principal diagnosis: pancreatitis Interval history: Patient was seen today for follow-up on multiple renal related issues Sodium is much better Renal function normalized Vitals labs intake output medications were reviewed Social history: Reviewed Allergies: Reviewed Family history: Reviewed Physical examination HEENT: Oral mucosa moist no pallor or icterus Neck: Supple no JVD Chest: Clear to auscultation anteriorly CVS: Regular rate and rhythm S1 and S2 heard Abdomen: Soft nontender no suprapubic masses no organomegaly appreciable Extremity: Dry skin less than 1+ peripheral edema Musculoskeletal: No joint effusion noted in knees and ankle Neurological: Alert awake Dermatology: No petechial rashes Psychiatry: No evidence of any agitation and aggression noted Assessment and plan Acute renal failure mostly resulting from volume depletion, Required 1 dialysis treatment Hyponatremia improving Continue to monitor lab Needs follow-up in the office Multiple other issues being followed by other disciplines Avoid STEFAN inhibitors and angiotensin receptor jimmy diuretics We'll continue to follow and make recommendation from renal standpoint Objective - Vital Signs Vital signs: Vital Signs - 12hr 11/11/18 11/11/18 11/12/18 23:00 23:20 00:00 Temperature 100.8 F H Pulse Rate 108 H 110 H 108 H Respiratory Rate Blood Pressure 123/79 127/80 121/72 O2 Sat by Pulse 100 100 99 Oximetry 11/12/18 11/12/18 11/12/18 01:00 02:00 03:00 Temperature Pulse Rate 108 H 110 H Respiratory 33 H 32 H Rate Blood Pressure 135/48 135/48 132/64 O2 Sat by Pulse 99 100 100 Oximetry 11/12/18 11/12/18 11/12/18 04:00 05:00 06:00 Temperature 100.6 F H Pulse Rate 105 H 103 H Respiratory 31 H 27 H 28 H Rate Blood Pressure 133/83 133/83 127/84 O2 Sat by Pulse 100 100 100 Oximetry 11/12/18 11/12/18 11/12/18 07:00 08:00 09:00 Temperature 99.3 F Pulse Rate 104 H 99 H 108 H Respiratory 29 H 37 H Rate Blood Pressure 119/81 128/77 114/75 O2 Sat by Pulse 100 100 Oximetry - Lab 11/12/18 04:57 11/12/18 04:57 Most recent lab results Calcium 8.1 mg/dL (8.4-10.2) L 11/12/18 04:57 Magnesium 1.60 mg/dL (1.7-2.3) L 11/08/18 14:50 Urine Creatinine 84.6 mg/dL (0.1-20.0) H 11/08/18 Unknown Urine Sodium 66 mmol/L 11/08/18 Unknown Urine Total Protein 183 mg/dL (5-11.8) H 11/08/18 Unknown Medications & Allergies - Medications Allergies/Adverse Reactions: Allergies No Known Allergies Allergy (Verified 11/08/18 10:14) Home Medications: Home Medications Medication Instructions Recorded Confirmed Last Taken Type Carvedilol 25 mg PO BID 11/08/18 11/08/18 Unknown History Cetirizine HCl 10 mg PO DAILY 11/08/18 11/08/18 Unknown History Fenofibrate 160 mg PO HS 11/08/18 11/08/18 Unknown History Lovastatin 40 mg PO DAILY 11/08/18 11/08/18 Unknown History Olmesartan/Hctz 40/12.5MG 40 mg PO DAILY 11/08/18 11/08/18 Unknown History chlorproMAZINE 25 mg PO TID 11/08/18 11/08/18 Unknown History metFORMIN 1,000 mg PO BID 11/08/18 11/08/18 Unknown History traZODone 150 mg PO DAILY 11/08/18 11/08/18 Unknown History Active Medications: Generic Name Dose Route Start Last Admin Trade Name Freq PRN Reason Stop Dose Admin Acetaminophen 650 mg 11/08/18 23:43 11/10/18 10:22 Tylenol PO 650 mg Q4H PRN Administration Pain MILD(1-3)/Fever >100.5/SEO Famotidine 10 mg 11/08/18 14:00 11/12/18 09:30 Pepcid PO 10 mg BID CHRISSY Administration Sodium Chloride 100 mls @ 999 mls/hr 11/08/18 13:08 Nacl 0.9% IV YAHAIRA PRN Hypotension Levofloxacin/Dextrose 500 mg in 100 mls @ 100 mls/hr 11/11/18 12:00 11/12/18 09:29 Levaquin 500mg/100ml IV 100 mls/hr Q24HR CHRISSY Administration Insulin Human Regular 0 units 11/09/18 07:30 11/12/18 09:29 Humulin R SUB-Q 2 units ACHS CHRISSY Administration Protocol Lorazepam 2 mg 11/08/18 13:43 11/12/18 01:08 Ativan IV 2 mg Q1H PRN Administration CIWA-Ar 8-15 Sodium Chloride 10 ml 11/08/18 22:00 11/12/18 09:33 Sodium Chloride Flush Syringe 10 Ml IV 10 ml BID CHRISSY Administration Sodium Chloride 10 ml 11/08/18 13:33 Sodium Chloride Flush Syringe 10 Ml IV PRN PRN LINE FLUSH Sodium Chloride 2 gm 11/11/18 22:00 11/12/18 09:32 Sodium Chloride PO 2 gm BID CHRISSY Administration
--- NOTE | 2018-11-12 14:21 | Gastroenterology Progress Note ---
Assessment and Plan 1.acute pancreatitis 2.ETOH abuse -afebrile -WBC-WNL -H/H 10.0/28.8 (stable) -plt 150-trended up, INR 1.13-trended down -lipase 71-trended down (3006 on admission) -LFTs- T.travis 1.60, AST 43., ALT 40, alk phos 43 -hepatitis panel negative -triglyceride level 489 -CRP 29.00 -abd CT showed acute pancreatitis and liver with decreased heterogeneous attenuation which may represent hepatocellular disease, fatty infiltration, or cirrhosis (no lesion) -abd U/S showed diffuse fatty infiltration of the liver but no evidence of surface nodularity or liver mass (sludge in gallbladder and mild dilation of CBD) -etiology-most likely 2/2 ETOH abuse (possible underlying cirrhosis cannot be excluded) -clinically, patient is slowly improving. More alert today. Denies abd pain, N/V, or active signs of bleeding. Tolerating clears. -advance diet to GI soft -continue to trend labs and supportive care with IVF, pain control, antiemetics, empiric antibiotics, etc. -alcohol cessation-continue [facility] protocol -will follow 3.acute renal failure-s/p emergent hemodialysis; nephrology following 4.SIRS Subjective Date of service: 11/12/18 Principal diagnosis: pancreatitis Interval history: Patient sitting up in bedside chair this am w/o acute distress and noted to be more alert. Denies abd pain or N/v. No active signs of bleeding. Requesting to eat. Currently tolerating clears. Objective - Constitutional Vitals: Temp Pulse Resp BP Pulse Ox 98 F 110 H 30 H 124/77 100 11/12/18 12:00 11/12/18 13:00 11/12/18 13:00 11/12/18 13:00 11/12/18 13:00 General appearance: no acute distress - Respiratory Respiratory: bilateral: CTA - Cardiovascular Rhythm: other (tachycardia) - Gastrointestinal General gastrointestinal: Present: soft, non-tender, non-distended, normal bowel sounds - Labs CBC & Chem 7: 11/12/18 04:57 11/12/18 04:57 Labs: Laboratory Results - last 24 hr 11/08/18 11/08/18 11/12/18 13:41 13:41 04:57 WBC RBC Hgb Hct MCV MCH MCHC RDW Plt Count [place] % (Auto) Add Manual Diff Total Counted Seg Neuts % (Manual) Band Neutrophils % Lymphocytes % (Manual) Reactive Lymphs % (Man) Monocytes % (Manual) Eosinophils % (Manual) Basophils % (Manual) Metamyelocytes % Myelocytes % Promyelocytes % Blast Cells % Nucleated RBC % Seg Neutrophils # Man Band Neutrophils # Lymphocytes # (Manual) Abs React Lymphs (Man) Monocytes # (Manual) Eosinophils # (Manual) Basophils # (Manual) Metamyelocytes # Myelocytes # Promyelocytes # Blast Cells # WBC Morphology Hypersegmented Neuts Hyposegmented Neuts Hypogranular Neuts Smudge Cells Toxic Granulation Toxic Vacuolation Dohle Bodies Pelger-Huet Anomaly Kathie Rods Platelet Estimate Clumped Platelets Plt Clumps, EDTA Large Platelets Giant Platelets Platelet Satelliting Plt Morphology Comment RBC Morphology Dimorphic RBCs Polychromasia Hypochromasia Poikilocytosis Anisocytosis Microcytosis Macrocytosis Spherocytes Pappenheimer Bodies Sickle Cells Target Cells Tear Drop Cells Ovalocytes Stomatocytes Helmet Cells [place]bert-[place] Bodies [place] Rings Mateusz Cells Bite Cells Crenated Cell Elliptocytes Acanthocytes (Spur) Rouleaux Hemoglobin C Crystals Schistocytes Malaria parasites Damion Bodies Hem Pathologist Commnt Sodium 133 L Potassium 4.0 Chloride 95.6 L Carbon Dioxide 18 L Anion Gap 23 BUN 19 Creatinine 1.2 Estimated GFR > 60 BUN/Creatinine Ratio 16 Glucose 137 H Calcium 8.1 L Total Bilirubin 1.60 H AST 43 H ALT 40 Alkaline Phosphatase 43 C-Reactive Protein 29.00 H Total Protein 7.1 Albumin 3.2 L Albumin/Globulin Ratio 0.8 Lipase 71 H Complement C3 63 L Complement C4 25 19 04:57 WBC 7.4 RBC 2.84 L Hgb 10.0 L Hct 28.8 L MCV 102 H MCH 35 H MCHC 35 H RDW 16.3 H Plt Count 150 [place] % (Auto) [employer] Recorder Add Manual Diff Complete Total Counted 100 Seg Neuts % (Manual) 59.0 Band Neutrophils % 10.0 Lymphocytes % (Manual) 10.0 L Reactive Lymphs % (Man) 0 Monocytes % (Manual) 17.0 H Eosinophils % (Manual) 1.0 Basophils % (Manual) 1.0 Metamyelocytes % 2.0 Myelocytes % 0 Promyelocytes % 0 Blast Cells % 0 Nucleated RBC % Not Reportable Seg Neutrophils # Man 4.4 Band Neutrophils # 0.7 Lymphocytes # (Manual) 0.7 L Abs React Lymphs (Man) 0.0 Monocytes # (Manual) 1.3 H Eosinophils # (Manual) 0.1 Basophils # (Manual) 0.1 Metamyelocytes # 0.1 Myelocytes # 0.0 Promyelocytes # 0.0 Blast Cells # 0.0 WBC Morphology Not Reportable Hypersegmented Neuts Not Reportable Hyposegmented Neuts Not Reportable Hypogranular Neuts Not Reportable Smudge Cells Not Reportable Toxic Granulation Not Reportable Toxic Vacuolation Not Reportable Dohle Bodies Not Reportable Pelger-Huet Anomaly Not Reportable Kathie Rods Not Reportable Platelet Estimate Consistent w auto Clumped Platelets Not Reportable Plt Clumps, EDTA Not Reportable Large Platelets Not Reportable Giant Platelets Not Reportable Platelet Satelliting Not Reportable Plt Morphology Comment Not Reportable RBC Morphology Not Reportable Dimorphic RBCs Not Reportable Polychromasia Not Reportable Hypochromasia Not Reportable Poikilocytosis Not Reportable Anisocytosis Not Reportable Microcytosis Not Reportable Macrocytosis Not Reportable Spherocytes Not Reportable Pappenheimer Bodies Not Reportable Sickle Cells Not Reportable Target Cells 1+ Tear Drop Cells Not Reportable Ovalocytes Not Reportable Stomatocytes Few Helmet Cells Not Reportable [place]bert-[place] Bodies Not Reportable [place] Rings Not Reportable Mateusz Cells Not Reportable Bite Cells Not Reportable Crenated Cell Not Reportable Elliptocytes Not Reportable Acanthocytes (Spur) Not Reportable Rouleaux Not Reportable Hemoglobin C Crystals Not Reportable Schistocytes Not Reportable Malaria parasites Not Reportable Damion Bodies Not Reportable Hem Pathologist Commnt No Sodium Potassium Chloride Carbon Dioxide Anion Gap BUN Creatinine Estimated GFR BUN/Creatinine Ratio Glucose Calcium Total Bilirubin AST ALT Alkaline Phosphatase C-Reactive Protein Total Protein Albumin Albumin/Globulin Ratio Lipase Complement C3 Complement C4
[2018-11-12] MEDS: TYLENOL PO PRN (23:16)
[2018-11-13 06:21] LABS: INR 1.15 (0.87-1.13)
[2018-11-13 06:39] LABS: Alanine Aminotransferase 35 units/L (7-56); Albumin 3.1 g/dL (3.9-5); BUN/Creatinine Ratio 16; Blood Urea Nitrogen 18 mg/dL (9-20); Hemolysis Index 2
[2018-11-13 08:01] VITALS: BP 132/82
--- NOTE | 2018-11-13 08:45 | Progress Note ---
Assessment and Plan Assessment and plan: 57m who pw abdominal pain. The patient admits to very heavy alcohol abuse. Acute pancreatitis. Continue IV fluid hydration. Follow serial lipase. GI consultation. For US Acute renal failure/hyponatremia. Nephrology following. Patient has received urgent hemodialysis 1. IV fluids, further care per nephrology Hyperkalemia. Etiology secondary to above. Resolved with hemodialysis. Continue to monitor. SIRS with acute organ dysfunction. Blood cultures are negative. No evidence of infection EtOH abuse/withdrawal. Continue CIWA protocol. Patient was counseled on alcohol cessation greater than 15 minutes was spent History Interval history: Review of systems Constitutional: No fevers, no malaise, no joint pains CVS: No chest pain, no orthopnea, no dyspnea on exertion, no pedal edema GI: Continues to complain of abdominal pain, no diarrhea, no vomiting, no constipation Respiratory: No shortness of breath, no wheezing, no coughing Hospitalist Physical - Physical exam Narrative exam: General.: Appears well, no distress, nontoxic HEENT: Moist mucous membranes, extraocular muscles intact, no lymphadenopathy Neck: supple Cardiac: S1-S2 heard Lungs: clear to auscultation bilaterally Abdomen: soft , tender Skin: no rash or lesions Neurologic: no gross focal deficits Psych: calm, and cooperative - Constitutional Vitals: Temp Pulse Resp BP Pulse Ox 99 F 98 H 18 132/82 96 11/13/18 04:00 11/13/18 08:00 11/13/18 08:00 11/13/18 08:00 11/13/18 05:00 General appearance: Present: no acute distress, other (occasional tremors) Results - Labs CBC & Chem 7: 11/12/18 04:57 11/13/18 05:33 Labs: Laboratory Last Values WBC 7.4 K/mm3 (4.5-11.0) 11/12/18 04:57 RBC 2.84 M/mm3 (3.65-5.03) L 11/12/18 04:57 Hgb 10.0 gm/dl (11.8-15.2) L 11/12/18 04:57 Hct 28.8 % (35.5-45.6) L 11/12/18 04:57 MCV 102 fl (84-94) H 11/12/18 04:57 MCH 35 pg (28-32) H 11/12/18 04:57 MCHC 35 % (32-34) H 11/12/18 04:57 RDW 16.3 % (13.2-15.2) H 11/12/18 04:57 Plt Count 150 K/mm3 (140-440) 11/12/18 04:57 [place] % (Auto) Trolley Wire Installer 11/12/18 04:57 Add Manual Diff Complete 11/12/18 04:57 Total Counted 100 11/12/18 04:57 Seg Neuts % (Manual) 59.0 % (40.0-70.0) 11/12/18 04:57 Band Neutrophils % 10.0 % 11/12/18 04:57 Lymphocytes % (Manual) 10.0 % (13.4-35.0) L 11/12/18 04:57 Reactive Lymphs % (Man) 0 % 11/12/18 04:57 Monocytes % (Manual) 17.0 % (0.0-7.3) H 11/12/18 04:57 Eosinophils % (Manual) 1.0 % (0.0-4.3) 11/12/18 04:57 Basophils % (Manual) 1.0 % (0.0-1.8) 11/12/18 04:57 Metamyelocytes % 2.0 % 11/12/18 04:57 Myelocytes % 0 % 11/12/18 04:57 Promyelocytes % 0 % 11/12/18 04:57 Blast Cells % 0 % 11/12/18 04:57 Nucleated RBC % Not Reportable 11/12/18 04:57 Seg Neutrophils # Man 4.4 K/mm3 (1.8-7.7) 11/12/18 04:57 Band Neutrophils # 0.7 K/mm3 11/12/18 04:57 Lymphocytes # (Manual) 0.7 K/mm3 (1.2-5.4) L 11/12/18 04:57 Abs React Lymphs (Man) 0.0 K/mm3 11/12/18 04:57 Monocytes # (Manual) 1.3 K/mm3 (0.0-0.8) H 11/12/18 04:57 Eosinophils # (Manual) 0.1 K/mm3 (0.0-0.4) 11/12/18 04:57 Basophils # (Manual) 0.1 K/mm3 (0.0-0.1) 11/12/18 04:57 Metamyelocytes # 0.1 K/mm3 11/12/18 04:57 Myelocytes # 0.0 K/mm3 11/12/18 04:57 Promyelocytes # 0.0 K/mm3 11/12/18 04:57 Blast Cells # 0.0 K/mm3 11/12/18 04:57 WBC Morphology Not Reportable 11/12/18 04:57 Hypersegmented Neuts Not Reportable 11/12/18 04:57 Hyposegmented Neuts Not Reportable 11/12/18 04:57 Hypogranular Neuts Not Reportable 11/12/18 04:57 Smudge Cells Not Reportable 11/12/18 04:57 Toxic Granulation Not Reportable 11/12/18 04:57 Toxic Vacuolation Not Reportable 11/12/18 04:57 Dohle Bodies Not Reportable 11/12/18 04:57 Pelger-Huet Anomaly Not Reportable 11/12/18 04:57 Kathie Rods Not Reportable 11/12/18 04:57 Platelet Estimate Consistent w auto 11/12/18 04:57 Clumped Platelets Not Reportable 11/12/18 04:57 Plt Clumps, EDTA Not Reportable 11/12/18 04:57 Large Platelets Not Reportable 11/12/18 04:57 Giant Platelets Not Reportable 11/12/18 04:57 Platelet Satelliting Not Reportable 11/12/18 04:57 Plt Morphology Comment Not Reportable 11/12/18 04:57 RBC Morphology Not Reportable 11/12/18 04:57 Dimorphic RBCs Not Reportable 11/12/18 04:57 Polychromasia Not Reportable 11/12/18 04:57 Hypochromasia Not Reportable 11/12/18 04:57 Poikilocytosis Not Reportable 11/12/18 04:57 Anisocytosis Not Reportable 11/12/18 04:57 Microcytosis Not Reportable 11/12/18 04:57 Macrocytosis Not Reportable 11/12/18 04:57 Spherocytes Not Reportable 11/12/18 04:57 Pappenheimer Bodies Not Reportable 11/12/18 04:57 Sickle Cells Not Reportable 11/12/18 04:57 Target Cells 1+ 11/12/18 04:57 Tear Drop Cells Not Reportable 11/12/18 04:57 Ovalocytes Not Reportable 11/12/18 04:57 Stomatocytes Few 11/12/18 04:57 Helmet Cells Not Reportable 11/12/18 04:57 Hebert-[place] Bodies Not Reportable 11/12/18 04:57 [place] Rings Not Reportable 11/12/18 04:57 [place] Cells Not Reportable 11/12/18 04:57 Bite Cells Not Reportable 11/12/18 04:57 Crenated Cell Not Reportable 11/12/18 04:57 Elliptocytes Not Reportable 11/12/18 04:57 Acanthocytes (Spur) Not Reportable 11/12/18 04:57 Rouleaux Not Reportable 11/12/18 04:57 Hemoglobin C Crystals Not Reportable 11/12/18 04:57 Schistocytes Not Reportable 11/12/18 04:57 Malaria parasites Not Reportable 11/12/18 04:57 Damion Bodies Not Reportable 11/12/18 04:57 Hem Pathologist Commnt No 11/12/18 04:57 PT 15.4 Sec. (12.2-14.9) H 11/13/18 05:33 INR 1.15 (0.87-1.13) H 11/13/18 05:33 APTT 33.9 Sec. (24.2-36.6) 11/08/18 11:05 Sodium 137 mmol/L (137-145) 11/13/18 05:33 Potassium 3.9 mmol/L (3.6-5.0) 11/13/18 05:33 Chloride 100.7 mmol/L (98-107) 11/13/18 05:33 Carbon Dioxide 21 mmol/L (22-30) L 11/13/18 05:33 Anion Gap 19 mmol/L 11/13/18 05:33 BUN 18 mg/dL (9-20) 11/13/18 05:33 Creatinine 1.1 mg/dL (0.8-1.5) 11/13/18 05:33 Estimated GFR > 60 ml/min 11/13/18 05:33 BUN/Creatinine Ratio 16 % 11/13/18 05:33 Glucose 163 mg/dL (75-100) H 11/13/18 05:33 POC Glucose 192 (70-105) H 11/13/18 08:35 Osmolality 295 Mosm/kg 11/09/18 13:29 Uric Acid 1.7 mg/dL (3.5-7.6) L 11/09/18 15:04 Calcium 8.0 mg/dL (8.4-10.2) L 11/13/18 05:33 Magnesium 1.60 mg/dL (1.7-2.3) L 11/08/18 14:50 Total Bilirubin 1.60 mg/dL (0.1-1.2) H 11/13/18 05:33 Direct Bilirubin 0.9 mg/dL (0-0.2) H 11/11/18 05:29 Indirect Bilirubin 0.5 mg/dL 11/11/18 05:29 AST 78 units/L (5-40) H 11/13/18 05:33 ALT 35 units/L (7-56) 11/13/18 05:33 Alkaline Phosphatase 42 units/L (35-129) 11/13/18 05:33 Ammonia < 10.0 umol/L (25-60) L 11/08/18 15:26 Total Creatine Kinase 159 units/L (55-170) 11/08/18 11:05 CK-MB (CK-2) 1.1 ng/mL (0.0-4.0) 11/08/18 11:05 CK-MB (CK-2) Rel Index 0.6 (0-4) 11/08/18 11:05 Troponin T < 0.010 ng/mL (0.00-0.029) 11/08/18 11:05 C-Reactive Protein 22.60 mg/dL (0.00-1.30) H 11/13/18 05:33 Total Protein 6.0 g/dL (6.3-8.2) L 11/13/18 05:33 Albumin 3.1 g/dL (3.9-5) L 11/13/18 05:33 Albumin/Globulin Ratio 1.1 % 11/13/18 05:33 Triglycerides 489 mg/dL (2-149) H 11/11/18 05:29 Lipase 97 units/L (13-60) H 11/13/18 05:33 TSH 9.780 mlU/mL (0.270-4.200) H 11/08/18 11:05 Free T4 1.21 ng/dL (0.76-1.46) 11/08/18 11:05 Urine Color Yellow (Yellow) 11/08/18 13:04 Urine Turbidity Slightly-cloudy (Clear) 11/08/18 13:04 Urine pH 5.0 (5.0-7.0) 11/08/18 13:04 Ur Specific [place] 1.022 (1.003-1.030) 11/08/18 13:04 Urine Protein 100 mg/dl mg/dL (Negative) 11/08/18 13:04 Urine Glucose (UA) >=500 mg/dL (Negative) 11/08/18 13:04 Urine Ketones Neg mg/dL (Negative) 11/08/18 13:04 Urine Blood Mod (Negative) 11/08/18 13:04 Urine Nitrite Neg (Negative) 11/08/18 13:04 Urine Bilirubin Neg (Negative) 11/08/18 13:04 Urine Urobilinogen < 2.0 mg/dL (<2.0) 11/08/18 13:04 Ur Leukocyte Esterase Neg (Negative) 11/08/18 13:04 Urine WBC (Auto) 2.0 /HPF (0.0-6.0) 11/08/18 13:04 Urine RBC (Auto) 1.0 /HPF (0.0-6.0) 11/08/18 13:04 U Epithel Cells (Auto) 1.0 /HPF (0-13.0) 11/08/18 13:04 Urine Mucus Few /HPF 11/08/18 13:04 Urine Creatinine 84.6 mg/dL (0.1-20.0) H 11/08/18 Unknown Urine Sodium 66 mmol/L 11/08/18 Unknown Urine Total Protein 183 mg/dL (5-11.8) H 11/08/18 Unknown Urine Opiates Screen Presumptive negative 11/08/18 13:04 Urine Methadone Screen Presumptive negative 11/08/18 13:04 Ur Barbiturates Screen Presumptive negative 11/08/18 13:04 Ur Phencyclidine Scrn Presumptive negative 11/08/18 13:04 Ur Amphetamines Screen Presumptive negative 11/08/18 13:04 U Benzodiazepines Scrn Presumptive negative 11/08/18 13:04 Urine Cocaine Screen Presumptive negative 11/08/18 13:04 U Marijuana (THC) Screen Presumptive negative 11/08/18 13:04 Drugs of Abuse Note Disclamer 11/08/18 13:04 Plasma/Serum Alcohol < 0.01 % (0-0.07) 11/08/18 11:05 Complement C3 63 mg/dL (82-185) L 11/08/18 13:41 Complement C4 25 mg/dL (15-53) 11/08/18 13:41 Hepatitis A IgM Ab Non-reactive (NonReactive) 11/08/18 11:05 Hep Bs Antigen Non-reactive (Negative) 11/08/18 11:05 Hep B Core IgM Ab Non-reactive (NonReactive) 11/08/18 11:05 Hepatitis C Antibody Non-reactive (NonReactive) 11/08/18 11:05 Blood Type O POSITIVE 11/08/18 11:13 Antibody Screen Negative 11/08/18 11:13
--- NOTE | 2018-11-13 09:18 | Progress Note ---
Subjective Principal diagnosis: pancreatitis Interval history: Patient was seen today for follow-up on multiple renal related issues Encephalopathy slowly improving Renal function has normalized Patient required 1 dialysis treatment during this admission Vitals labs intake output medications were reviewed Social history: Reviewed Allergies: Reviewed Family history: Reviewed Physical examination HEENT: Oral mucosa moist no pallor or icterus Neck: Supple no JVD Chest: Clear to auscultation anteriorly CVS: Regular rate and rhythm S1 and S2 heard Abdomen: Soft nontender no suprapubic masses no organomegaly appreciable Extremity: Dry skin less than 1+ peripheral edema Musculoskeletal: No joint effusion noted in knees and ankle Neurological: Alert awake Dermatology: No petechial rashes Psychiatry: No evidence of any agitation and aggression noted Assessment and plan Acute renal failure mostly resulting from volume depletion, Required 1 dialysis treatment , due to severe hyperkalemia and renal failure Hyponatremia improving Continue to monitor lab Needs follow-up in the office in a week upon discharge Avoid STEFAN inhibitors and angiotensin receptor jimmy diuretics Will sign off the case please call if needed We'll continue to follow and make recommendation from renal standpoint Objective - Vital Signs Vital signs: Vital Signs - 12hr 11/12/18 11/12/18 11/13/18 22:00 23:01 00:00 Temperature 98.9 F Pulse Rate 110 H 111 H 111 H Respiratory 29 H 32 H 19 Rate Blood Pressure 106/62 117/74 101/50 O2 Sat by Pulse 99 98 Oximetry 11/13/18 11/13/18 11/13/18 00:05 01:00 02:00 Temperature Pulse Rate 110 H 113 H 120 H Respiratory 17 32 H 26 H Rate Blood Pressure 101/50 117/67 117/67 O2 Sat by Pulse 97 100 100 Oximetry 11/13/18 11/13/18 11/13/18 03:00 04:00 05:00 Temperature 99 F Pulse Rate 104 H 106 H 106 H Respiratory 20 19 14 Rate Blood Pressure 123/57 112/64 113/53 O2 Sat by Pulse 96 85 96 Oximetry 11/13/18 11/13/18 11/13/18 06:00 07:00 08:00 Temperature Pulse Rate 93 H 98 H Respiratory 22 18 Rate Blood Pressure 128/69 129/77 132/82 O2 Sat by Pulse Oximetry - Lab 11/12/18 04:57 11/13/18 05:33 Most recent lab results Calcium 8.0 mg/dL (8.4-10.2) L 11/13/18 05:33 Magnesium 1.60 mg/dL (1.7-2.3) L 11/08/18 14:50 Urine Creatinine 84.6 mg/dL (0.1-20.0) H 11/08/18 Unknown Urine Sodium 66 mmol/L 11/08/18 Unknown Urine Total Protein 183 mg/dL (5-11.8) H 11/08/18 Unknown Medications & Allergies - Medications Allergies/Adverse Reactions: Allergies No Known Allergies Allergy (Verified 11/08/18 10:14) Home Medications: Home Medications Medication Instructions Recorded Confirmed Last Taken Type Carvedilol 25 mg PO BID 11/08/18 11/08/18 Unknown History Cetirizine HCl 10 mg PO DAILY 11/08/18 11/08/18 Unknown History Fenofibrate 160 mg PO HS 11/08/18 11/08/18 Unknown History Lovastatin 40 mg PO DAILY 11/08/18 11/08/18 Unknown History Olmesartan/Hctz 40/12.5MG 40 mg PO DAILY 11/08/18 11/08/18 Unknown History chlorproMAZINE 25 mg PO TID 11/08/18 11/08/18 Unknown History metFORMIN 1,000 mg PO BID 11/08/18 11/08/18 Unknown History traZODone 150 mg PO DAILY 11/08/18 11/08/18 Unknown History Active Medications: Generic Name Dose Route Start Last Admin Trade Name Freq PRN Reason Stop Dose Admin Acetaminophen 650 mg 11/08/18 23:43 11/12/18 23:16 Tylenol PO 650 mg Q4H PRN Administration Pain MILD(1-3)/Fever >100.5/SEO Famotidine 10 mg 11/08/18 14:00 11/12/18 21:15 Pepcid PO 10 mg BID CHRISSY Administration Sodium Chloride 100 mls @ 999 mls/hr 11/08/18 13:08 Nacl 0.9% IV YAHAIRA PRN Hypotension Levofloxacin/Dextrose 500 mg in 100 mls @ 100 mls/hr 11/11/18 12:00 11/12/18 09:29 Levaquin 500mg/100ml IV 100 mls/hr Q24HR CHRISSY Administration Insulin Human Regular 0 units 11/09/18 07:30 03/13/19 22:53 Humulin R SUB-Q 3 units ACHS CHRISSY Administration Protocol Lorazepam 2 mg 11/08/18 13:43 11/12/18 01:08 Ativan IV 2 mg Q1H PRN Administration CIWA-Ar 8-15 Sodium Chloride 10 ml 11/08/18 22:00 11/12/18 21:15 Sodium Chloride Flush Syringe 10 Ml IV 10 ml BID CHRISSY Administration Sodium Chloride 10 ml 11/08/18 13:33 Sodium Chloride Flush Syringe 10 Ml IV PRN PRN LINE FLUSH Sodium Chloride 2 gm 11/11/18 22:00 11/12/18 21:14 Sodium Chloride PO 2 gm BID CHRISSY Administration
[2018-11-13] MEDS: LEVAQUIN 500MG/100ML 500 MG/100 ML BAG IV SCH (10:50)
[2018-11-13] MEDS: PEPCID PO SCH (10:55)
[2018-11-13] MEDS: SODIUM CHLORIDE PO SCH (10:55)
--- NOTE | 2018-11-13 11:49 | Gastroenterology Progress Note ---
Assessment and Plan 1.acute pancreatitis 2.ETOH abuse -afebrile -WBC-WNL -H/H 10.0/28.8 (stable) -plt 150-trended up; INR 1.15-stable -lipase 97 trended down (3006 on admission) -LFTs-stable -hepatitis panel negative -triglyceride level 489 -CRP 22.60-trending down -abd CT showed acute pancreatitis and liver with decreased heterogeneous attenuation which may represent hepatocellular disease, fatty infiltration, or cirrhosis (no lesion) -abd U/S showed diffuse fatty infiltration of the liver but no evidence of surface nodularity or liver mass (sludge in gallbladder and mild dilation of CBD) -etiology-most likely 2/2 ETOH abuse (possible underlying cirrhosis cannot be excluded) -clinically, patient is stable with abd pain now resolved. No N/V or active signs of bleeding. Tolerating diet. -continue to trend labs and supportive care with IVF, pain control, antiemetics, empiric antibiotics, etc. -alcohol cessation discussed/encouraged with patient-continue CIWA protocol -patient is okay to be d/c per GI standpoint with f/u in clinic ~2 weeks -will sign off, please call if needed 3.acute renal failure-s/p emergent hemodialysis; nephrology following 4.SIRS Subjective Date of service: 11/13/18 Principal diagnosis: pancreatitis Interval history: Patient w/o acute distress. Denies abd pain or N/v. Tolerating diet. Objective - Constitutional Vitals: Temp Pulse Resp BP Pulse Ox 98.3 F 98 H 18 132/82 100 11/13/18 08:00 11/13/18 08:00 11/13/18 08:00 11/13/18 08:00 11/13/18 11:40 General appearance: no acute distress - Respiratory Respiratory: bilateral: CTA - Cardiovascular Rhythm: regular - Gastrointestinal General gastrointestinal: Present: soft, non-tender, non-distended, normal bowel sounds - Labs CBC & Chem 7: 11/12/18 04:57 11/13/18 05:33 Labs: Laboratory Results - last 24 hr 11/08/18 11/08/18 11/09/18 13:41 13:41 12:05 PT INR Sodium Potassium Chloride Carbon Dioxide Anion Gap BUN Creatinine Estimated GFR BUN/Creatinine Ratio Glucose POC Glucose 248 H Calcium Total Bilirubin AST ALT Alkaline Phosphatase C-Reactive Protein Total Protein Albumin Albumin/Globulin Ratio Lipase Complement C3 63 L Complement C4 25 11/09/18 11/10/18 11/10/18 16:21 07:16 11:08 PT INR Sodium Potassium Chloride Carbon Dioxide Anion Gap BUN Creatinine Estimated GFR BUN/Creatinine Ratio Glucose POC Glucose 247 H 239 H 253 H Calcium Total Bilirubin AST ALT Alkaline Phosphatase C-Reactive Protein Total Protein Albumin Albumin/Globulin Ratio Lipase Complement C3 Complement C4 11/10/18 11/10/18 11/11/18 16:02 21:05 08:34 PT INR Sodium Potassium Chloride Carbon Dioxide Anion Gap BUN Creatinine Estimated GFR BUN/Creatinine Ratio Glucose POC Glucose 184 H 199 H 153 H Calcium Total Bilirubin AST ALT Alkaline Phosphatase C-Reactive Protein Total Protein Albumin Albumin/Globulin Ratio Lipase Complement C3 Complement C4 11/11/18 11/11/18 11/11/18 12:32 16:39 21:58 PT INR Sodium Potassium Chloride Carbon Dioxide Anion Gap BUN Creatinine Estimated GFR BUN/Creatinine Ratio Glucose POC Glucose 157 H 194 H 172 H Calcium Total Bilirubin AST ALT Alkaline Phosphatase C-Reactive Protein Total Protein Albumin Albumin/Globulin Ratio Lipase Complement C3 Complement C4 11/12/18 11/12/18 11/12/18 07:52 11:42 16:26 PT INR Sodium Potassium Chloride Carbon Dioxide Anion Gap BUN Creatinine Estimated GFR BUN/Creatinine Ratio Glucose POC Glucose 159 H 183 H 260 H Calcium Total Bilirubin AST ALT Alkaline Phosphatase C-Reactive Protein Total Protein Albumin Albumin/Globulin Ratio Lipase Complement C3 Complement C4 11/12/18 11/13/18 11/13/18 22:52 05:33 05:33 PT 15.4 H INR 1.15 H Sodium 137 Potassium 3.9 Chloride 100.7 Carbon Dioxide 21 L Anion Gap 19 BUN 18 Creatinine 1.1 Estimated GFR > 60 BUN/Creatinine Ratio 16 Glucose 163 H POC Glucose 226 H Calcium 8.0 L Total Bilirubin 1.60 H AST 78 H ALT 35 Alkaline Phosphatase 42 C-Reactive Protein 22.60 H Total Protein 6.0 L Albumin 3.1 L Albumin/Globulin Ratio 1.1 Lipase 97 H Complement C3 Complement C4 11/13/18 11/13/18 08:35 11:36 PT INR Sodium Potassium Chloride Carbon Dioxide Anion Gap BUN Creatinine Estimated GFR BUN/Creatinine Ratio Glucose POC Glucose 192 H 268 H Calcium Total Bilirubin AST ALT Alkaline Phosphatase C-Reactive Protein Total Protein Albumin Albumin/Globulin Ratio Lipase Complement C3 Complement C4
--- NOTE | 2018-11-13 13:33 | Discharge Summary ---
Providers - Providers Date of Admission: 11/08/18 13:33 Attending physician: PADMINI GRIJALVA MD 11/08/18 12:40 Consult to Physician [CONS] Stat Comment: DR FRANCISCO NOTIFIED 1235 Consulting Provider: ELIDIA FRANCISCO Physician Instructions: Reason For Exam: hyperkalemia, acute renal failure 11/08/18 12:50 Consult to Physician [CONS] Stat Comment: DR Alexus CONRAD NOTIFIED 1240 Consulting Provider: TIKA CONRAD Physician Instructions: Reason For Exam: dialysis access 11/10/18 11:58 Consult to Physician [CONS] Routine Comment: Consulting Provider: SHANON BECK Physician Instructions: Reason For Exam: pancreatitis 11/11/18 12:36 Physical Therapy Evaluation and Treat [CONS] Routine Comment: Reason For Exam: safety Primary care physician: NAM COLBERT Hospitalization Condition: Serious Hospital course: 57-year-old man with history of heavy alcohol abuse. He presented with abdominal pain. Was found to have acute pancreatitis. He also suffered acute renal failure. The patient received IV fluids. Medications and bowel rest. He clinically improved. He required emergent hemodialysis 1. His electrolytes normalized after hemodialysis and IV fluids. He was counseled on alcohol cessation. He was treated with [facility] protocol for alcohol withdrawal. Diagnoses Acute pancreatitis Acute kidney injury due to vasomotor nephropathy requiring urgent hemodialysis Hyperkalemia Hyponatremia SIRS with organ dysfunction, no evidence of infection Disposition: [id number]/TX-06 HOME UNDER HOME HL Time spent for discharge: 33 mins Core Measure Documentation - Palliative Care Palliative Care/ Comfort Measures: Not Applicable - Core Measures Any of the following diagnoses?: none Exam - Constitutional Vitals: Temp Pulse Resp BP Pulse Ox 98.3 F 98 H 18 132/82 100 11/13/18 11:47 11/13/18 08:00 11/13/18 08:00 11/13/18 08:00 11/13/18 11:40 General appearance: Present: no acute distress, well-nourished - EENT Eyes: Present: PERRL ENT: hearing intact, clear oral mucosa - Neck Neck: Present: supple, normal ROM - Respiratory Respiratory effort: normal Respiratory: bilateral: CTA - Cardiovascular Heart Sounds: Present: S1 & S2. Absent: rub, click - Extremities Extremities: pulses symmetrical, No edema Peripheral Pulses: within normal limits - Abdominal General gastrointestinal: Present: soft, non-tender, non-distended, normal bowel sounds Male genitourinary: Present: normal - Integumentary Integumentary: Present: clear, warm, dry - Musculoskeletal Musculoskeletal: gait normal, strength equal bilaterally - Psychiatric Psychiatric: appropriate mood/affect, intact judgment & insight - Neurologic Neurologic: CNII-XII intact, moves all extremities Plan Follow up with: NAM COLBERT MD [Primary Care Provider] - 3-5 Days Prescriptions: Folic Acid 0.4 mg PO QDAY #30 tablet Thiamine [Vitamin B-1] 100 mg PO QDAY #30 tablet
[2018-11-13 20:16] LABS: Myeloperoxidase Antibody <1.0 AI (<1.0)
[2018-11-13 21:14] LABS: ANA Screen, IFA Negative (Negative)
== END 2018-11-13 16:00 | disposition home health service (06) | DRG 438 ==
LOC: ED 09:58 → IMCU 13:33
PROVIDERS: ADMIT Internal Medicine; ATTEND Internal Medicine
PROC: 06HM33Z Insertion of Infusion Device into Right Femoral Vein, Percutaneous Approach (ICD-10-PCS; principal; 2018-11-08)
PROC: B54BZZA Ultrasonography of Right Lower Extremity Veins, Guidance (ICD-10-PCS; 2018-11-08)
PROC: 5A1D70Z Performance of Urinary Filtration, Intermittent, Less than 6 Hours Per Day (ICD-10-PCS; 2018-11-08)
DX: K85.20 Alcohol induced acute pancreatitis without necrosis or infection (principal); N17.0 Acute kidney failure with tubular necrosis; R65.11 Systemic inflammatory response syndrome (SIRS) of non-infectious origin with acute organ dysfunction; N18.6 End stage renal disease; E87.2 Acidosis; I12.0 Hypertensive chronic kidney disease with stage 5 chronic kidney disease or end stage renal disease; E87.1 Hypo-osmolality and hyponatremia; E87.5 Hyperkalemia; I95.9 Hypotension, unspecified; F10.20 Alcohol dependence, uncomplicated; E11.22 Type 2 diabetes mellitus with diabetic chronic kidney disease; E86.0 Dehydration; Z79.84 Long term (current) use of oral hypoglycemic drugs
CPT/HCPCS: 36415; 70450; 71045; 74176; 76700; 76770; 80048; 80053; 80074; 80076; 80307; 80320; 81001; 82140; 82550; 82553; 82570; 82962; 83690; 83735; 83930; 84156; 84300; 84439; 84443; 84478; 84484; 84550; 85007; 85025; 85027; 85610; 85730; 86021; 86038; 86140; 86160; 86850; 86900; 86901; 87040; 93005; 93010; 94760; 96374; 96375; G0378; G0480; J0610; J1644; J1815; J1956; J2060; J3475; J3480; J7030; J7040; J7050; J7070